=== PATIENT | male | born 1955 | race Caucasian/White ===

== ENCOUNTER 2018-01-01 12:05 | Emergency (ER) | payer BC ==
--- OUTSIDE RECORDS SUMMARY | 2018-01-01 12:08 | XMS REPORT | Clinical Summary ---
:1955 Author Organization [facility] Address [address] [place] [address] Care Team Providers Name Role Phone Nia Arellano MD Primary Care Provider Allergies Active Allergy Reactions Severity Noted Date Comments No Known Drug Allergies 06/23/2016 Current Medications Prescription Sig. Disp. Refills Start Date End Date Status multivitamin with Take 1 tablet Active minerals tablet by mouth daily. MYRBETRIQ 50 mg TAKE 1 TABLET 90 tablet 3 03/08/2017 Active tablet extended DAILY release 24 hrIndications: Urgency of urination melatonin 3 mg Take 3 mg by Active tablet mouth. enalapril-hydrochlor 08/22/2017 Active othiazide (VASERETIC) 10-25 mg per tablet labetalol Take 300 mg by Active (NORMODYNE) 300 MG mouth 2 (two) tablet times a day. apixaban (ELIQUIS) 5 Take 5 mg by Active mg tablet mouth 2 (two) times a day. amLODIPine (NORVASC) Take 5 mg by Active 5 mg tablet mouth daily. labetalol labetalol 200 Discontinued (NORMODYNE) 200 MG mg tablet 7 tablet mirabegron Take 1 tablet 30 tablet 6 10/31/2015 Discontinued (MYRBETRIQ) 50 mg (50 mg total) 7 tablet extended by mouth release 24 daily. hrIndications: Urgency of urination enalapril-hydrochlor Take 1 tablet 15 tablet 0 01/07/2016 Discontinued othiazide by mouth 7 (VASERETIC) 10-25 mg daily. per tablet enalapril 10 mg-hydrochloro thiazide 25 mg tablet aspirin (ECOTRIN) Take 325 mg by Discontinued 325 MG enteric mouth daily. 8 coated tablet melatonin 5 mg Take 5 mg by Discontinued tablet mouth. 7 amLODIPine (NORVASC) Take 1 tablet 90 tablet 3 11/03/2016 Discontinued 10 mg (10 mg total) 7 tabletIndications: by mouth Essential daily. hypertension rosuvastatin Take 1 tablet 90 tablet 1 12/03/2016 Discontinued (CRESTOR) 10 MG (10 mg total) 7 tablet by mouth daily. enalapril-hydrochlor Take 1 tablet 30 tablet 0 01/17/2017 Discontinued othiazide by mouth 7 (VASERETIC) 10-25 mg daily. per tablet enalapril 10 mg-hydrochloro thiazide 25 mg tablet amLODIPine (NORVASC) Take 2 tablets 180 tablet 3 02/22/2017 Discontinued 10 mg (20 mg total) 8 tabletIndications: by mouth Essential daily. hypertension enalapril-hydrochlor Take 1 tablet 90 tablet 3 02/22/2017 Discontinued othiazide by mouth 8 (VASERETIC) 10-25 mg daily. per tablet enalapril 10 mg-hydrochloro thiazide 25 mg tablet labetalol Take 1 tablet 180 tablet 3 02/22/2017 Discontinued (NORMODYNE) 200 MG (200 mg total) 8 tablet by mouth 2 (two) times a day. labetalol 200 mg tablet albuterol (PROAIR Inhale 2 puffs 18 g 0 05/31/2017 Discontinued HFA,PROVENTIL every 6 (six) 7 HFA,VENTOLIN HFA) 90 hours as mcg/actuation needed for inhalerIndications: wheezing. Cough, Wheezing benzonatate Take 1 capsule 20 capsule 0 05/31/2017 (TESSALON PERLES) (100 mg total) 7 100 MG by mouth 3 capsuleIndications: (three) times Cough a day as needed for cough for up to 7 days. cefdinir (OMNICEF) Take 1 capsule 20 capsule 0 05/31/2017 300 MG (300 mg total) 7 capsuleIndications: by mouth 2 Cough (two) times a day for 10 days. cetirizine (ZyrTEC) Take 1 tablet 30 tablet 11 05/31/2017 Discontinued 10 MG (10 mg total) 8 tabletIndications: by mouth Cough daily. cyclobenzaprine Take 10 mg by Discontinued (FLEXERIL) 10 mg mouth 3 7 tablet (three) times a day as needed for muscle spasms. cyclobenzaprine Take 1 tablet 30 tablet 1 06/16/2017 Discontinued (FLEXERIL) 10 mg (10 mg total) 8 tabletIndications: by mouth 3 Jaw pain, Neck pain (three) times a day as needed for muscle spasms. codeine-guaifenesin Take 5 mL by 236 mL 0 06/29/2017 Discontinued (GUAIFENESIN AC) mouth 3 8 10-100 mg/5 mL (three) times liquidIndications: a day as Bronchitis, Exposure needed for to respiratory cough for up syncytial virus to 10 days. (RSV), Cough, Wheezing albuterol (PROAIR Inhale 2 puffs 18 g 0 06/29/2017 Discontinued HFA,PROVENTIL every 6 (six) 8 HFA,VENTOLIN HFA) 90 hours as mcg/actuation needed for inhalerIndications: wheezing. Cough, Wheezing benzonatate Take 1 capsule 20 capsule 0 06/29/2017 (TESSALON PERLES) (100 mg total) 8 100 MG capsule by mouth 3 (three) times a day as needed for cough for up to 7 days. labetalol Take 1 tablet 60 tablet 2 07/11/2017 Discontinued (NORMODYNE) 300 MG (300 mg total) 8 tablet by mouth 2 (two) times a day for 30 days. amLODIPine (NORVASC) Take 1 tablet 30 tablet 2 07/12/2017 Discontinued 5 mg tablet (5 mg total) 8 by mouth daily for 30 days. apixaban (ELIQUIS) 5 Take 1 tablet 60 tablet 3 07/11/2017 Discontinued mg tablet (5 mg total) 8 by mouth 2 (two) times a day for 30 days. apixaban (ELIQUIS) 5 Take 1 tablet 180 tablet 3 07/19/2017 mg tablet (5 mg total) 8 by mouth 2 (two) times a day for 30 days. amLODIPine (NORVASC) Take 1 tablet 90 tablet 3 07/26/2017 5 mg tablet (5 mg total) 8 by mouth daily for 30 days. labetalol Take 1 tablet 180 tablet 3 07/26/2017 (NORMODYNE) 300 MG (300 mg total) 8 tablet by mouth 2 (two) times a day for 30 days. Active Problems Problem Noted Date Atrial fibrillation by electrocardiography 08/24/2017 Overview: Added automatically from request for surgery [id number] TIA (transient ischemic attack) 07/11/2017 Overview: Negative MRI, MRA, found to be in a fib Atrial fibrillation with RVR 07/09/2017 Knee pain, bilateral 12/02/2016 Pain of both hip joints 12/02/2016 Hyperlipidemia 12/02/2016 Hemorrhoid 08/05/2016 Paresthesia and pain of right extremity 08/05/2016 Sleep apnea 06/23/2016 Overview: Uses CPAP, travels with it BMI 40.0-44.9, adult 06/23/2016 History of prostate cancer 09/29/2015 Adenocarcinoma of prostate 01/30/2015 History of gastrointestinal ulcer 07/04/2011 Overview: Full eval 2011 w EGD, capsule endoscopy Mea Hypertension Colon polyp Resolved Problems Problem Noted Date Resolved Date Exposure to respiratory syncytial virus (RSV) 06/29/2017 08/18/2017 Jaw pain 06/16/2017 06/29/2017 Neck pain 06/16/2017 06/29/2017 Oral mucosal lesion 03/14/2017 05/31/2017 Overview: Bilateral lip lesion inferior buccal mucosa, poss 2nd to trauma, c/w fibroma, excision w [facility] Derangement, knee 12/17/2016 08/18/2017 Chronic pain of right knee 12/17/2016 08/18/2017 Atypical pigmented lesion 08/05/2016 03/14/2017 Bilateral shoulder pain 08/05/2016 03/14/2017 Anemia 07/04/2011 08/19/2017 Overview: [id number] full GI eval w/upper, lower, capsule - Meah Encounters Date Type Specialty Care Team Description 09/07/2017 Hospital Procedural Dee Gordon Atrial fibrillation by Encounter Cardiology RMercedes MD electrocardiography 09/07/2017 Anesthesia Event Procedural Gaj[place]ik, Cardiology Yuni 09/07/2017 Procedure Pass Procedural Cardiology 09/07/2017 Surgery Procedural Dee Gordon Cardioversion w cristal [[id number] Kam Cuadra MD (CPT)] 09/05/2017 Lab Lab Dee Gordon Atrial fibrillationVenecia MD unspecified type (Primary Dx) 08/24/2017 Orders Only Cardiology Jeancarlos, Atrial fibrillation by Alexandra electrocardiography ANNABELLE Mcleod (Primary Dx) 08/24/2017 Transcribe Orders Procedural Dee Gordon Abnormal cardiovascular Cardiology MD Venecia function study (Primary Dx) 08/24/2017 Orders Only Cardiology Marco Antonio Boone MA Atrial fibrillation, unspecified type (Primary Dx) 08/23/2017 Office Visit Cardiology Dee Gordon Paroxysmal atrial MD Venecia fibrillation (Primary Dx) 08/18/2017 Lab Lab Adan, Anemia, unspecified type; Nia Rosenthal MD Essential hypertension 08/18/2017 [facility], unspecified type (Primary Dx); Nia Rosetnhal MD Essential hypertension; Sleep apnea, unspecified type; Adenocarcinoma of prostate; Hemorrhoids, unspecified hemorrhoid type; Anemia, unspecified type 07/26/2017 Refill Cardiology Cosmo, Med Refill Carmen, MA 07/19/2017 Refill Cardiology Cosmo, Med Refill Carmen, MA 07/09/2017 Hospital Neurology Alphonse, Atrial fibrillation with - Encounter MD Linnette RVR (Primary Dx) 07/11/2017 Christophe Canela MD 07/09/2017 Procedure Pass Neurology 07/09/2017 Procedure Pass Neurology 07/09/2017 Procedure Pass Neurology 07/09/2017 Telephone [facility] Ashley Carpio MD 06/29/2017 Office Visit [facility] Adan, Essential hypertension (Primary Dx); Nia Rosenthal MD Bronchitis; Exposure to respiratory syncytial virus (RSV); Cough; Wheezing 06/29/2017 Telephone [facility] Nia Arellano MD 06/16/2017 Lab Lab Adan, Jaw pain; Nia Rosenthal MD Neck pain 06/16/2017 Office Visit [facility] Adan, Jaw pain (Primary Dx) ; Nia Rosenthal MD Neck pain; Essential hypertension 06/15/2017 Telephone [facility] Nia Arellano MD 06/13/2017 Telephone [facility] Nia Arellano MD 06/07/2017 Lab [facility], Cough Nia Rosenthal MD 05/31/2017 [facility] Nia Rosenthal MD Essential hypertension; Wheezing; Exposure to weather condition, initial encounter 05/25/2017 Telephone [facility] Jose Ramon JohnnieBI 03/25/2017 Orders Only Cardiology Dee Gordon MD 03/14/2017 [facility] (Primary Dx); Nia Rosenthal MD Pure hypercholesterolemia; Oral mucosal lesion 02/22/2017 Office Visit Cardiology Dee Gordon Pure hypercholesterolemia ( Primary Dx); MD Venecia Essential hypertension 02/18/2017 Refill Urology Marco Antonio Hernandez Urgency of urination Sivakumar Fung MD 01/18/2017 Office Visit Urology Leroy Prostate cancer (Primary Dx); Surjit echavarria Urinary frequency MD Genny 01/17/2017 Orders Only Cardiology Mariluz Armando MA 01/11/2017 Clinical Support Urology [facility] Malignant neoplasm of Surjit echavarria prostate (Primary Dx) MD Genny 01/10/2017 Office Visit Orthopedic Jaci Ravi Complex tear of medial Surgery MD Khanh meniscus of right knee as current injury, subsequent encounter (Primary Dx) 01/03/2017 Telephone Urology Surjit Workman MD after 12/31/2016 Immunizations Name Dates Previously Given Next Due FLUCELVAX QUAD PF (0.5mL syringe) 03/30/2017 Influenza Trivalent 02/09/2016, 04/03/2015 Tdap 07/04/2009 Family History Medical History Relation Name Comments Hyperlipidemia Father Lung cancer Father Cancer Maternal Grandfather colon Colon cancer Maternal Grandfather Hypertension Mother Sleep apnea Mother Testicular cancer Son Relation Name Status Comments Father Maternal Grandfather Mother Alive Son Social History Tobacco Use Types Packs/Day Years Used Date Never Smoker Smokeless Tobacco: Never Used Tobacco Cessation: Counseling Given: Yes Alcohol Use Drinks/Week oz/Week Comments Yes 3 Glasses of wine 5.4 6 Cans of beer Sex Assigned at Date Recorded Not on file Last Filed Vital Signs Vital Sign Reading Time Taken Blood Pressure 149/89 09/07/2017 11:30 AM PATIENT SUPPORT ASSOCIATE Pulse 62 09/07/2017 11:30 AM PATIENT SUPPORT ASSOCIATE Temperature 37.2 C (99 F) 09/07/2017 10:36 AM PATIENT SUPPORT ASSOCIATE Respiratory Rate 19 09/07/2017 11:30 AM PATIENT SUPPORT ASSOCIATE Oxygen Saturation 99% 09/07/2017 11:30 AM PATIENT SUPPORT ASSOCIATE Inhaled Oxygen Concentration - - Weight 138 kg (304 lb) 09/07/2017 8:19 AM PATIENT SUPPORT ASSOCIATE Height 182.9 cm (6') 09/07/2017 8:19 AM PATIENT SUPPORT ASSOCIATE Body Mass Index 41.23 09/07/2017 8:19 AM PATIENT SUPPORT ASSOCIATE Plan of Treatment Date Type Specialty Care Team Description 02/21/2018 Office Visit Cardiology Dee Gordon MD [address] [facility] [address] [place] [address] Health Maintenance Due Date Last Done Comments SHINGRIX VACCINE (#1) 2007 ZOSTER VACCINE 2017 INFLUENZA VACCINE 02/01/2018 03/30/2017, 04/20/2016, 02/09/2016, Additional history exists COLON CANCER SCREENING 02/01/2026 02/02/2016 Procedures Procedure Name Priority Date/Time Associated Diagnosis Comments ECHOCARDIOGRAM Routine 09/07/2017 Results for TRANSESOPHAGEAL W 11:37 AM PATIENT SUPPORT ASSOCIATE this procedure DOPPLER COLORFLOW are in the results section. ECG 12-LEAD STAT 09/07/2017 Results for 10:37 AM PATIENT SUPPORT ASSOCIATE this procedure are in the results section. EP CARDIOVERSION W Routine 09/07/2017 Atrial fibrillation by CRISTAL 10:34 AM PATIENT SUPPORT ASSOCIATE electrocardiography ECG PRE/POST OP STAT 09/07/2017 Results for 8:06 AM PATIENT SUPPORT ASSOCIATE this procedure are in the results section. PT AND PTT Routine 09/05/2017 Atrial fibrillation, Results for 1:41 PM PATIENT SUPPORT ASSOCIATE unspecified type this procedure are in the results section. CBC WITH PLATELET AND Routine 09/05/2017 Atrial fibrillation, Results for DIFFERENTIAL 1:41 PM PATIENT SUPPORT ASSOCIATE unspecified type this procedure are in the results section. COMPREHENSIVE Routine 09/05/2017 Atrial fibrillation, Results for METABOLIC PANEL 1:41 PM PATIENT SUPPORT ASSOCIATE unspecified type this procedure are in the results section. NM MYOCARDIAL Routine 09/01/2017 Paroxysmal atrial Results for PERFUSION STRESS ONLY 5:13 PM PATIENT SUPPORT ASSOCIATE fibrillation this procedure are in the results section. CV STRESS TEST Routine 09/01/2017 Atrial fibrillation, Results for NUCLEAR CARDIO 5:13 PM PATIENT SUPPORT ASSOCIATE unspecified type this procedure are in the results section. COMPREHENSIVE Routine 08/18/2017 Essential hypertension Results for METABOLIC PANEL 11:39 AM PATIENT SUPPORT ASSOCIATE this procedure are in the results section. CBC WITH PLATELET AND Routine 08/18/2017 Anemia, unspecified type Results for DIFFERENTIAL 11:39 AM PATIENT SUPPORT ASSOCIATE this procedure are in the results section. ECHOCARDIOGRAM 2D Routine 07/11/2017 Results for COMPLETE W MMODE 11:29 AM PATIENT SUPPORT ASSOCIATE this procedure SPECTRAL COLOR are in the DOPPLER ([id number]) results section. HC COMPLETE BLD COUNT Routine 07/11/2017 Results for W/AUTO DIFF 4:33 AM PATIENT SUPPORT ASSOCIATE this procedure are in the results section. ESTIMATED GFR Routine 07/11/2017 Results for 4:00 AM PATIENT SUPPORT ASSOCIATE this procedure are in the results section. LIPID PANEL Routine 07/11/2017 Results for 4:00 AM PATIENT SUPPORT ASSOCIATE this procedure are in the results section. THYROID STIMULATING Routine 07/11/2017 Results for HORMONE 4:00 AM PATIENT SUPPORT ASSOCIATE this procedure are in the results section. T4, FREE Routine 07/11/2017 Results for 4:00 AM PATIENT SUPPORT ASSOCIATE this procedure are in the results section. BASIC METABOLIC PANEL Routine 07/11/2017 Results for 4:00 AM PATIENT SUPPORT ASSOCIATE this procedure are in the results section. ANTI XA, LOW Routine 07/11/2017 Results for MOLECULAR WEIGHT 4:00 AM PATIENT SUPPORT ASSOCIATE this procedure are in the results section. MRA NECK WO CONTRAST Routine 07/10/2017 Results for 1:43 PM PATIENT SUPPORT ASSOCIATE this procedure are in the results section. MRA HEAD WO CONTRAST Routine 07/10/2017 Results for 1:32 PM PATIENT SUPPORT ASSOCIATE this procedure are in the results section. MRI BRAIN WO CONTRAST Routine 07/10/2017 Results for 1:23 PM PATIENT SUPPORT ASSOCIATE this procedure are in the results section. TROPONIN Routine 07/10/2017 Results for 3:00 AM PATIENT SUPPORT ASSOCIATE this procedure are in the results section. URINE DRUGS OF ABUSE Routine 07/10/2017 Results for SCREEN 3:00 AM PATIENT SUPPORT ASSOCIATE this procedure are in the results section. URINALYSIS SCREEN AND Routine 07/10/2017 Results for MICROSCOPY, WITH 3:00 AM PATIENT SUPPORT ASSOCIATE this procedure REFLEX TO CULTURE are in the results section. ESTIMATED GFR Routine 07/10/2017 Results for 3:00 AM PATIENT SUPPORT ASSOCIATE this procedure are in the results section. BASIC METABOLIC PANEL Routine 07/10/2017 Results for 3:00 AM PATIENT SUPPORT ASSOCIATE this procedure are in the results section. HC COMPLETE BLD COUNT Routine 07/10/2017 Results for W/AUTO DIFF 3:00 AM PATIENT SUPPORT ASSOCIATE this procedure are in the results section. URINE CULTURE Routine 07/10/2017 Results for 3:00 AM PATIENT SUPPORT ASSOCIATE this procedure are in the results section. SEDIMENTATION RATE Routine 07/09/2017 Results for 11:50 PM PATIENT SUPPORT ASSOCIATE this procedure are in the results section. HEMOGLOBIN A1C Routine 07/09/2017 Results for 11:50 PM PATIENT SUPPORT ASSOCIATE this procedure are in the results section. ECG 12-LEAD STAT 07/09/2017 Results for 10:28 PM PATIENT SUPPORT ASSOCIATE this procedure are in the results section. ELLA Routine 07/09/2017 Results for 10:12 PM PATIENT SUPPORT ASSOCIATE this procedure are in the results section. TROPONIN Routine 07/09/2017 Results for 10:12 PM PATIENT SUPPORT ASSOCIATE this procedure are in the results section. RHEUMATOID FACTOR Routine 07/09/2017 Results for 10:12 PM PATIENT SUPPORT ASSOCIATE this procedure are in the results section. HIV 1, 2 ANTIBODY Routine 07/09/2017 Results for 10:12 PM PATIENT SUPPORT ASSOCIATE this procedure are in the results section. SYPHILIS TREPONEMAL Routine 07/09/2017 Results for IGG 10:12 PM PATIENT SUPPORT ASSOCIATE this procedure are in the results section. C-REACTIVE PROTEIN Routine 07/09/2017 Results for 10:12 PM PATIENT SUPPORT ASSOCIATE this procedure are in the results section. THYROID STIMULATING Routine 07/09/2017 Results for HORMONE 10:12 PM PATIENT SUPPORT ASSOCIATE this procedure are in the results section. VITAMIN D 25 HYDROXY Routine 07/09/2017 Results for LEVEL 10:12 PM PATIENT SUPPORT ASSOCIATE this procedure are in the results section. HOMOCYSTINE, PLASMA Routine 07/09/2017 Results for 10:12 PM PATIENT SUPPORT ASSOCIATE this procedure are in the results section. LIPID PANEL Routine 07/09/2017 Results for 10:12 PM PATIENT SUPPORT ASSOCIATE this procedure are in the results section. FOLATE LEVEL Routine 07/09/2017 Results for 10:12 PM PATIENT SUPPORT ASSOCIATE this procedure are in the results section. VITAMIN B12 LEVEL Routine 07/09/2017 Results for 10:12 PM PATIENT SUPPORT ASSOCIATE this procedure are in the results section. ESTIMATED GFR Timed 07/09/2017 Results for 8:30 PM PATIENT SUPPORT ASSOCIATE this procedure are in the results section. T4, FREE Timed 07/09/2017 Results for 8:30 PM PATIENT SUPPORT ASSOCIATE this procedure are in the results section. THYROID STIMULATING Timed 07/09/2017 Results for HORMONE 8:30 PM PATIENT SUPPORT ASSOCIATE this procedure are in the results section. PHOSPHORUS LEVEL Timed 07/09/2017 Results for 8:30 PM PATIENT SUPPORT ASSOCIATE this procedure are in the results section. MAGNESIUM LEVEL Timed 07/09/2017 Results for 8:30 PM PATIENT SUPPORT ASSOCIATE this procedure are in the results section. BASIC METABOLIC PANEL Timed 07/09/2017 Results for 8:30 PM PATIENT SUPPORT ASSOCIATE this procedure are in the results section. PARTIAL Timed 07/09/2017 Results for THROMBOPLASTIN TIME 8:30 PM PATIENT SUPPORT ASSOCIATE this procedure (PTT) are in the results section. PROTHROMBIN TIME WITH Timed 07/09/2017 Results for INR 8:30 PM PATIENT SUPPORT ASSOCIATE this procedure are in the results section. HC COMPLETE BLD COUNT Timed 07/09/2017 Results for W/AUTO DIFF 8:30 PM PATIENT SUPPORT ASSOCIATE this procedure are in the results section. TROPONIN Timed 07/09/2017 Results for 8:30 PM PATIENT SUPPORT ASSOCIATE this procedure are in the results section. SEDIMENTATION RATE Routine 06/16/2017 Jaw pain Results for 9:59 AM PATIENT SUPPORT ASSOCIATE Neck pain this procedure are in the results section. COMPREHENSIVE Routine 06/07/2017 Cough Results for METABOLIC PANEL 1:36 PM PATIENT SUPPORT ASSOCIATE this procedure are in the results section. CBC WITH PLATELET AND Routine 06/07/2017 Cough Results for DIFFERENTIAL 1:36 PM PATIENT SUPPORT ASSOCIATE this procedure are in the results section. XR CHEST 2 VW Routine 06/07/2017 Cough Results for 1:34 PM PATIENT SUPPORT ASSOCIATE Wheezing this procedure are in the results section. OBTAIN MEDICAL Routine 03/25/2017 RECORDS 12:00 AM CDT POC URINALYSIS Routine 01/18/2017 Prostate cancer Results for DIPSTICK 12:22 PM CDT this procedure are in the results section. PSA, ULTRASENSITIVE Routine 01/11/2017 Malignant neoplasm of Results for 10:42 AM CDT prostate this procedure are in the results section. ND ARTHROCENTESIS Routine 01/10/2017 Complex tear of medial Results for ASPIR&/INJ MAJOR 6:28 PM CDT meniscus of right knee as this procedure JT/BURSA W/O US current injury, are in the subsequent encounter results section. after 12/31/2016 Results Echocardiogram transesophageal (09/07/2017 11:37 AM) Narrative Performed At [facility] Transesophageal Echo Report [id number], [place], [place] [address] Pat.Name:AIDEN MORGAN Kameron Pat.ID:[id number] .Date: 09/07/2017Refer.MD:DEE GORDON MD Exam Time: 9:49:00 AMStudy Type:CRISTAL Height:72inWeight: 303.6lb BSA: 2.55 m2 DOBAge:1955,62Y Sex: MALEBP:173/95 HR:72 bpmSonogrphr: Aamir Mooney MD Pat. Stat.:OutpatientRoom:[facility] Study Status:Final Echo Event ID:[id number] Order ID:[id number] Reason for Study:Atrial fibrillation, Cardioversion History / Clinical:Cancer, Hypertension Procedures:Transesophageal Echo with Colorflow Doppler Race: SUMMARY: LV size is normal. LV EF is normal. No thrombus or mass is visualized in the LA or LA appendage. FINDINGS: CRISTAL:The attending internet marketing strategist performed the CRISTAL procedure and waspresent for the entire duration. The patient was counseledand an informed consent was obtained. Topical and intravenousanesthesia was administered. The esophagus was intubatedwithout difficulty. The probe was passed to the gastricfundus and all standard echocardiographic views wereobtained. The patient tolerated the procedure well. LV: LV size is normal. LV EF is normal. Overall wall motion is normal.Estimated EF is 60-64%. RV: RV size is normal. RV systolic function is normal. LA: LA volume is enlarged. No thrombus or mass is visualized in theLA or LA appendage. RA: RA volume is enlarged. AO: Aortic root diameter is mildly enlarged. No significant atheroscleroticchanges seen in the aortic arch and descendingaorta. BRITTNEY: No pericardial effusion. AV: No structural AV abnormalities noted. MV: No structural MV abnormalities noted. Mild to moderate mitralregurgitation. PV: No structural PV abnormalities noted. TV: No structural TV abnormalities noted. Mild tricuspid regurgitation CRISTAL: Anesthesia: Per Anesthesia ASA Class: 3 Physician: Eric Aviles MD Information Systems Analyst: Aamir Mooney MD Pre TEEBP HR Post CRISTAL BP HR 173/95 19163/78 68 Meds:Viscous xylocaine, Cetacaine spray to oropharynx, Per Anesthesia Complications: None Condition: Stable Signed 09/07/2017 11:54 AM Eric Aviles MD Procedure Note Interface, Radiology Results In - 09/07/2017 11:54 AM [facility] Transesophageal Echo Report [id number] , [place] [address] Pat.Name: MORGANAIDEN Pat.ID: [id number] .Date: 09/07/2017 Refer.MD: DEE GORDON MD Exam Time: 9:49:00 AM Study Type:CRISTAL Height: 72in Weight: 303.6lb BSA: 2.55 m2 Age: 2 1955,62Y Sex: MALE BP: 173/95 HR: 72 bpm Sonogrphr: Aamir Mooney MD Pat. Stat.:Outpatient Room: [facility] Study Status:Final Echo Event ID:[id number] Order ID: [id number] Reason for Study:Atrial fibrillation, Cardioversion History / Clinical:Cancer, Hypertension Procedures:Transesophageal Echo with Colorflow Doppler Race: SUMMARY: LV size is normal. LV EF is normal. No thrombus or mass is visualized in the LA or LA appendage. FINDINGS: CRISTAL: The attending internet marketing strategist performed the CRISTAL procedure and was present for the entire duration. The patient was counseled and an informed consent was obtained. Topical and intravenous anesthesia was administered. The esophagus was intubated without difficulty. The probe was passed to the gastric fundus and all standard echocardiographic views were obtained. The patient tolerated the procedure well. LV: LV size is normal. LV EF is normal. Overall wall motion is normal. Estimated EF is 60-64%. RV: RV size is normal. RV systolic function is normal. LA: LA volume is enlarged. No thrombus or mass is visualized in the LA or LA appendage. RA: RA volume is enlarged. AO: Aortic root diameter is mildly enlarged. No significant atherosclerotic changes seen in the aortic arch and descending aorta. BRITTNEY: No pericardial effusion. AV: No structural AV abnormalities noted. MV: No structural MV abnormalities noted. Mild to moderate mitral regurgitation. PV: No structural PV abnormalities noted. TV: No structural TV abnormalities noted. Mild tricuspid regurgitation CRISTAL: Anesthesia: Per Anesthesia ASA Class: 3 Physician: Eric Aviles MD Information Systems Analyst: Aamir Mooney MD Pre CRISTAL BP HR Post CRISTAL BP HR 173/95 72 135/78 68 Meds: Viscous xylocaine, Cetacaine spray to oropharynx, Per Anesthesia Complications: None Condition: Stable Signed 09/07/2017 11:54 AM Eric Aviles MD Performing Organization Address City/State/Zipcode Phone Number [facility] [address] [place] [address] ECG 12 lead (09/07/2017 10:37 AM)Only the most recent of2 resultswithin the time period is included. Ventricular rate 61 [facility] Atrial rate 61 [facility] ND interval 236 [facility] QRSD interval 110 [facility] QT interval 414 [facility] QTC interval 416 [facility] P axis 1 97 [facility] QRS axis 1 -18 [facility] T wave axis -14 [facility] EKG impression Sinus rhythm with 1st degree AV block-Possible Anterior infarct (cited on or before 07-SEP-2017)-Abnormal ECG-In automated comparison with ECG of 07-SEP-2017 10:35,-Sinus rhythm has replaced Atrial flutter-Serial changes of evolving Anterior infarct [facility] MUSE present- :53 AM Performing Organization Address City/State/[facility] Phone Number [facility] MUSE [address] [place] [address] Cv electrophysiology procedure (09/07/2017 10:34 AM) Narrative Performed At Performing Organization Address [facility] Phone Number HM [facility] [address] [place] [address] ECG Pre/Post Op (09/07/2017 8:06 AM) Ventricular rate 72 [facility] Atrial rate 51 [facility] QRSD interval 104 [facility] QT interval 408 [facility] QTC interval 446 [facility] QRS axis 1 -10 [facility] T wave axis -8 [facility] MUSE EKG impression Atrial fibrillation-Abnormal ECG-In automated [facility] MUSE comparison with ECG of 09-JUL-2017 22:28,-No significant change was found- Performing Organization Address [facility] Phone Number [facility] MUSE [address] [place] [address] PT and PTT (09/05/2017 1:41 PM) INR 1.0 0.8 - 1.2 [facility] Comment: Reference interval is for non-anticoagulated patients. Suggested INR therapeutic range for Vitamin K antagonist therapy: Standard Dose (moderate intensity therapeutic range): 2.0 - 3.0 Higher intensity therapeutic range 2.5 - 3.5 Prothrombin time 10.5 9.1 - 12.0 sec [facility] aPTT 27 24 - 33 sec [facility] Comment: This test has not been validated for monitoring unfractionated heparin therapy. aPTT-based therapeutic ranges for unfractionated heparin therapy have not been established. For general guidelines on Heparin monitoring, refer to the [facility] Directory of Services. Specimen Blood Narrative Performed At Performed at: - [facility] [place], [id number] [employer] Team Member: Eduardo Singh MD, Phone:[phone] Performing Organization Address [facility] Phone Number [facility] CBC with platelet and differential (09/05/2017 1:41 PM)Only the most recent of6 resultswithin the time period is included. WBC 4.2 3.4 - 10.8 x10E3/uL [facility] RBC 4.35 4.14 - 5.80 x10E6/uL [facility] HGB 13.8 13.0 - 17.7 g/dL [facility] HCT 39.9 37.5 - 51.0 % [facility] MCV 92 79 - 97 fL [facility] MCH 31.7 26.6 - 33.0 pg [facility] MCHC 34.6 31.5 - 35.7 g/dL [facility] RDW 14.0 12.3 - 15.4 % [facility] Platelet count 228 150 - 379 x10E3/uL [facility] Neutrophils 40 Not Estab. % [facility] Lymphocytes 44 Not Estab. % [facility] Monocytes 10 Not Estab. % [facility] Eosinophils 4 Not Estab. % [facility] Basophils 1 Not Estab. % [facility] Neutrophils, absolute 1.7 1.4 - 7.0 x10E3/uL [facility] Lymphocytes, absolute 1.9 0.7 - 3.1 x10E3/uL [facility] Monocytes, absolute 0.4 0.1 - 0.9 x10E3/uL [facility] Eosinophils, absolute 0.2 0.0 - 0.4 x10E3/uL [facility] Basophils, absolute 0.0 0.0 - 0.2 x10E3/uL [facility] Immature granulocytes 1 Not Estab. % [facility] Immature grans (abs) 0.0 0.0 - 0.1 x10E3/uL [facility] Specimen Blood Narrative Performed At Performed at: - [facility] [address] [place], [id number] [employer] Team Member: Eduardo Singh MD, Phone:[phone] Performing Organization Address [facility]/State/Zipcode Phone Number [facility] Comprehensive metabolic panel (09/05/2017 1:41 PM)Only the most recent of3 resultswithin the time period is included. Glucose 87 65 - 99 mg/dL [facility] BUN, whole blood 14 8 - 27 mg/dL [facility] Creatinine 1.17 0.76 - 1.27 mg/dL [facility] EGFR Non-Afr. Swedish 67 >59 mL/min/1.73 [facility] EGFR 78 >59 mL/min/1.73 [facility] BUN/creatinine ratio 12 10 - 24 [facility] Sodium 142 134 - 144 mmol/L [facility] Potassium 3.7 3.5 - 5.2 mmol/L [facility] Chloride 101 96 - 106 mmol/L [facility] CO2 26 18 - 29 mmol/L [facility] Calcium 9.2 8.6 - 10.2 mg/dL [facility] Protein 6.9 6.0 - 8.5 g/dL [facility] Albumin, S 4.1 3.6 - 4.8 g/dL [facility] Globulin, total 2.8 1.5 - 4.5 g/dL [facility] Albumin/globulin ratio 1.5 1.2 - 2.2 [facility] Total bilirubin 0.5 0.0 - 1.2 mg/dL [facility] Alkaline phosphatase 47 39 - 117 IU/L [facility] AST 22 0 - 40 IU/L [facility] ALT 21 0 - 44 IU/L [facility] Specimen Blood Narrative Performed At Performed at:01 - [facility] [address] [place], [place] [id number] [employer] Team Member: Eduardo Singh MD, Phone:[phone] Performing Organization Address City/State/Zipcode Phone Number [facility] Cv stress test (09/01/2017 5:13 PM) Resting HR 78 [facility] Resting BP 136 [facility] Peak MET Achieved 1.0 [facility] MUSE Protocol Name Sarah [facility] MUSE Time in Exercise Phase 00:00:13 [facility] Max Systolic BP 152 [facility] Max Diastolic BP 74 [facility] Max Heart Rate 107 [facility] Max Predicted Heart Rate 160 [facility] Target HR Formula (220 - Age)*85% [facility] MUSE Test Indication Paroxysmal atrial fibrillation [facility] MUSE Arrhy During Ex [facility] ECG Interp Before EX [facility] ECG Interp During Ex [facility] Ex Summary Comment [facility] MUSE Overall HR Response to [facility] MUSE Exercise Overall BP Response To [facility] Exercise Reason for Termination Test complete [facility] MUSE Stress Test Impression Waveform interpreted in report [facility] MUSE associated with image study. No interpretation is provided as part of this Stress ECG report.-- Performing Organization Address City/State/Zipcode Phone Number [facility] MUSE [address] [place] [address] Nm myocardial perfusion (09/01/2017 5:13 PM) Target HR 136.00 bpm [facility] Narrative Performed At [facility] Nuclear Cardiology Laboratory [address] [facility], [address] [place] [address] Pli: [phone] Myocardial Perfusion Imaging Report Pat.Name:AIDEN MORGAN Kameron Pat.ID:[id number] .Date: 09/01/2017Refer.MD:DEE GORDON MD Exam Time: 10:24:00 AM Study Type:Myocardial Perfusion Imaging Height:73inWeight: 304lb BSA: 2.57 m2 DOBAge:1955,62Y Sex: MALE Nuclear Tech:KEVIN Valdez, [facility] Pat. Stat.:OutpatientNuclear Event ID:[id number] Order ID:[id number] Reason for Study:Abnormal EKG*, Atrial fibrillation* Procedures:Stress only Race: Clinical Symptoms:Regadenoson SUMMARY: BASELINE ECGNormal Sinus Rhythm STRESS TEST RESULTS Maximal Predicted HR160 beats/minute 85% Maximal Predicted HR 136 beats/minute Stress Test Duration1 minutes 00 seconds Resting Heart Rate78 beats/minute Maximal Heart Brrg343 beats/minute Resting Blood Jlnrdbkw543/86 mmHg Maximal Blood Rnjikopl832/74 mmHg % Maximal Heart Rate Achieved 66% Symptoms During TestHeadache, Shortness of breath Reason for Stopping TestAs per regadenoson protocol Maximal ST-segment shiftNone Stress-Induced Arrhythmias None Ischemic electrocardiographic changes (ST-segment depression) did not occur at peak regadenoson stress._. STRESS TEST INTERPRETATION Normal maximal regadenoson stress test. _. SCINTIGRAPHIC RESULTS Perfusion Defect Size (% LV) 0 % Total 0 % Ischemia 0 % Scar Left Ventricular Perfusion Results There is normal tracer distribution throughout the myocardium during stress. Gated SPECT Results The post-stress left ventricular ejection fraction is 56 % with normal regional wall motion and left ventricular thickening.Left ventricular end-diastolic volume is 172 ml; end-systolic volume is75 ml. The left ventricle is of normal size at stress.The right ventricle is of normal size with normal wall motion. Conclusion Normal regadenoson Tc-99m tetrofosmin myocardial perfusion study. The left ventricular ejection fraction is normal. Comments Patients with a normal stress myocardial perfusion study have a low (< 1%) annual risk of cardiac or nonfatal myocardial infarction. Study Quality/Artifacts The study quality is good. The mild reduction in mid and basal inferior wall counts during stress is probably due to diaphragmatic and other soft tissue attenuation artifacts rather than coronary artery disease. Comparison to Previous Study None available Signed 09/01/2017 03:24 PM Eric Aviles MD Procedure Note Interface, Radiology Results In - 09/01/2017 3:24 PM [facility] Nuclear Cardiology Laboratory [address] [facility] [address], [address] [place] [address] Myocardial Perfusion Imaging Report Pat.Name: AIDEN MORGAN Kameron Pat.ID: [id number] .Date: 09/01/2017 Refer.MD: DEE GORDON MD Exam Time: 10:24:00 AM Study Type:Myocardial Perfusion Imaging Height: 73in Weight: 304lb BSA: 2.57 m2 Age: 2 1955,62Y Sex: MALE Nuclear Tech:KEVIN Valdez ARRT(CT) Pat. Stat.:Outpatient Nuclear Event ID:[id number] Order ID: [id number] Reason for Study:Abnormal EKG*, Atrial fibrillation* Procedures:Stress only Race: Clinical Symptoms:Regadenoson SUMMARY: BASELINE ECG Normal Sinus Rhythm STRESS TEST RESULTS Maximal Predicted HR 160 beats/minute 85% Maximal Predicted HR 136 beats/minute Stress Test Duration 1 minutes 00 seconds Resting Heart Rate 78 beats/minute Maximal Heart Rate 107 beats/minute Resting Blood Pressure 136/86 mmHg Maximal Blood Pressure 152/74 mmHg % Maximal Heart Rate Achieved 66% Symptoms During Test Headache, Shortness of breath Reason for Stopping Test As per regadenoson protocol Maximal ST-segment shift None Stress-Induced Arrhythmias None Ischemic electrocardiographic changes (ST-segment depression) did not occur at peak regadenoson stress. _. STRESS TEST INTERPRETATION Normal maximal regadenoson stress test. _. SCINTIGRAPHIC RESULTS Perfusion Defect Size (% LV) 0 % Total 0 % Ischemia 0 % Scar Left Ventricular Perfusion Results There is normal tracer distribution throughout the myocardium during stress. Gated SPECT Results The post-stress left ventricular ejection fraction is 56 % with normal regional wall motion and left ventricular thickening. Left ventricular end-diastolic volume is 172 ml; end-systolic volume is 75 ml. The left ventricle is of normal size at stress. The right ventricle is of normal size with normal wall motion. Conclusion Normal regadenoson Tc-99m tetrofosmin myocardial perfusion study. The left ventricular ejection fraction is normal. Comments Patients with a normal stress myocardial perfusion study have a low (< 1%) annual risk of cardiac or nonfatal myocardial infarction. Study Quality/Artifacts The study quality is good. The mild reduction in mid and basal inferior wall counts during stress is probably due to diaphragmatic and other soft tissue attenuation artifacts rather than coronary artery disease. Comparison to Previous Study None available Signed 09/01/2017 03:24 PM Eric Aviles MD Performing Organization Address City/State/Zipcode Phone Number [facility] [address] [place] [address] Echocardiogram complete w contrast and 3D if needed (07/11/2017 11:29 AM) Narrative Performed At [facility] Echocardiography Report [address] [address], [place] [address] Pat.Name:AIDEN MORGAN Pat.ID:[id number] .Date: 07/11/2017Refer.MD:LINNETTE PAL MD Exam Time: 10:36:00 AM Study Type:Routine Echo Height:73inWeight: 298lb BSA: 2.55 m2 DOBAge:1955,61Y Sex: MALEBP:113/75 HR:79 bpm Sonogrphr: Zaira Rivas RDCS; Farnaz Hernandez. Stat.:Inpatient Room:[address] Study Status:Final Echo Event ID:[id number] Order ID:[id number] Reason for Study:A fib History / Clinical:Cancer, Hypertension Procedures:2D Echo, Colorflow Doppler Race:C SUMMARY: There is mild concentric LV hypertrophy. Normal LVEF FINDINGS: LV: LV size is normal. There is mild concentric LV hypertrophy. LVEF is normal. Overall wall motion is normal. Estimated EFis 60-64%. RV: RV size is normal. RV systolic function is normal. LA: LA volume is moderately enlarged. RA: RA volume is moderately enlarged. AO: Aortic root diameter is normal. BRITTNEY: No pericardial effusion. AV: Focal calcification of AV leaflets. MV: No structural MV abnormalities noted. Mild mitral regurgitation. PV: No structural PV abnormalities noted. A trace of pulmonic regurgitation. TV: No structural TV abnormalities noted. Sánchez: LV relaxation is impaired. Other:Estimated PA systolic pressure is 21 mmHg, assuming a mean RAPof 5 mmHg. MEASUREMENTS: 2D Parasternal [place] LVOT 2.4 cmAo An2.5 cm LVIDd5.4 cmIndex2.1 cm/m Ao Rtd 3.7 cm Index1.4 cm/m LVIDs3.2 cm LV Fmdi404.8 g(122-174) IVSd 1.3 cmLVM Fmiox349.1 g/m2 LVPWd1.3 cmRWT0.4 LA Ds5.1 cm LA Sng Plane LA Area 28.7 cm2(8.8-23.4) LA Vol 101.1 ml Index39.6 ml/m LA LngAx 6.8 cm RA Sng Plane RA Area 31.3 cm2(8.3-19.5) RA Vol 114.8 ml Index45 ml/m RA LngAx 7.1 cm DOPPLER LVOT For Flow LVOT Area4.5 cm2 LVOT SV 77.6 ml LVOTpkVel 99.5 cm/sHR85.2 bpm LVOTpkPG 4 mmHgLVOT CO6.6 l/min LVOTmnPG 2.2 mmHgLVOT CI2.6 l/m/m2 LVOT TVI17.2 cm Signed 07/11/2017 01:40 PM Eric Aviles MD Procedure Note Interface, Radiology Results In - 07/11/2017 1:40 PM [facility] Echocardiography Report [address] [place] [address] Pat.Name: AIDEN MORGAN Pat.ID: [id number] .Date: 07/11/2017 Refer.MD: LINNETTE PAL MD Exam Time: 10:36:00 AM Study Type:Routine Echo Height: 73in Weight: 298lb BSA: 2.55 m2 Age: 2 1955,61Y Sex: MALE BP: 113/75 HR: 79 bpm Sonogrphr: Zaira Rivas RDCS; Farnaz Hernandez. Stat.:Inpatient Room: [address] Study Status:Final Echo Event ID:[id number] Order ID: [id number] Reason for Study:A fib History / Clinical:Cancer, Hypertension Procedures:2D Echo, Colorflow Doppler Race: C SUMMARY: There is mild concentric LV hypertrophy. Normal LVEF FINDINGS: LV: LV size is normal. There is mild concentric LV hypertrophy. LV EF is normal. Overall wall motion is normal. Estimated EF is 60-64%. RV: RV size is normal. RV systolic function is normal. LA: LA volume is moderately enlarged. RA: RA volume is moderately enlarged. AO: Aortic root diameter is normal. BRITTNEY: No pericardial effusion. AV: Focal calcification of AV leaflets. MV: No structural MV abnormalities noted. Mild mitral regurgitation. PV: No structural PV abnormalities noted. A trace of pulmonic regurgitation. TV: No structural TV abnormalities noted. Sánchez: LV relaxation is impaired. Other: Estimated PA systolic pressure is 21 mmHg, assuming a mean RAP of 5 mmHg. MEASUREMENTS: 2D Parasternal [place] LVOT 2.4 cm Ao An 2.5 cm LVIDd 5.4 cm Index 2.1 cm/m Ao Rtd 3.7 cm Index 1.4 cm/m LVIDs 3.2 cm LV Mass 331.8 g (122-174) IVSd 1.3 cm LVM Index 130.1 g/m2 LVPWd 1.3 cm RWT 0.4 LA Ds 5.1 cm LA Sng Plane LA Area 28.7 cm2 (8.8-23.4) LA Vol 101.1 ml Index 39.6 ml/m LA LngAx 6.8 cm RA Sng Plane RA Area 31.3 cm2 (8.3-19.5) RA Vol 114.8 ml Index 45 ml/m RA LngAx 7.1 cm DOPPLER LVOT For Flow LVOT Area 4.5 cm2 LVOT SV 77.6 ml LVOTpkVel 99.5 cm/s HR 85.2 bpm LVOTpkPG 4 mmHg LVOT CO 6.6 l/min LVOTmnPG 2.2 mmHg LVOT CI 2.6 l/m/m2 LVOT TVI 17.2 cm Signed 07/11/2017 01:40 PM Eric Aviles MD Performing Organization Address [facility] Phone Number [facility] [address] [place] [address] Estimated GFR (07/11/2017 4:00 AM)Only the most recent of3 resultswithin the time period is included. GFR Non Af Amer 68 mL/min/1.73 m2 [facility] DEPARTMENT OF PATHOLOGY AND GENOMIC MEDICINE GFR Af Amer 83 mL/min/1.73 m2 [facility] DEPARTMENT OF Comment: PATHOLOGY AND GENOMIC Chronic kidney disease: <60 mL/min/1.73m2 MEDICINE Kidney failure: <15 mL/min/1.73m2 The estimated GFR is calculated from the IDMS-traceable Modification of Diet in Renal Disease Equation. The accuracy of the calculation is poor when the creatinine is normal. Calculated values >90 mL/min/1.73m2 are not reported. This equation has not been validated in children (<18 years), women, the elderly (>70 years), or ethnic groups other than Caucasians and Americans. Specimen Plasma specimen Performing Organization Address [facility] Phone Number [facility] DEPARTMENT OF PATHOLOGY AND [address] [place] [address] [facility] MEDICINE Anti Xa, low molecular weight (07/11/2017 4:00 AM) Heparin name Lovenox [facility] DEPARTMENT OF PATHOLOGY AND GENOMIC MEDICINE Anti Xa, low molecular 0.64 0.60 - 1.00 U/mL [facility] DEPARTMENT OF weight Comment: PATHOLOGY AND GENOMIC Specimen must be drawn at least 4 hours post dose following a MEDICINE minimum of 3 doses. Therapeutic Range:0.60 - 1.00 U/mL Specimen Blood Performing Organization Address City/State/Zipcode Phone Number [facility] DEPARTMENT OF PATHOLOGY AND [address] [place] [address] MEDICINE Thyroid stimulating hormone (07/11/2017 4:00 AM)Only the most recent of3 resultswithin the time period is included. TSH 2.90 0.27 - 4.20 uIU/mL [facility] DEPARTMENT OF PATHOLOGY AND GENOMIC MEDICINE Specimen Plasma specimen Performing Organization Address City/[facility] Phone Number [facility] DEPARTMENT OF PATHOLOGY AND [address] [place] [address] MEDICINE T4, free (07/11/2017 4:00 AM)Only the most recent of2 resultswithin the time period is included. T4, free 1.1 0.9 - 1.7 ng/dL [facility] DEPARTMENT OF PATHOLOGY AND GENOMIC MEDICINE Specimen Plasma specimen Performing Organization Address City/[facility] Phone Number [facility] DEPARTMENT OF PATHOLOGY AND [address] [place] [address] GENOMIC MEDICINE Lipid panel (07/11/2017 4:00 AM)Only the most recent of2 resultswithin the time period is included. Cholesterol 182 <200 mg/dL [facility] DEPARTMENT OF PATHOLOGY AND GENOMIC MEDICINE Triglycerides 144 <150 mg/dL [facility] DEPARTMENT OF PATHOLOGY AND GENOMIC MEDICINE HDL cholesterol 35 (L) >40 mg/dL [facility] DEPARTMENT OF PATHOLOGY AND GENOMIC MEDICINE LDL cholesterol 133 (H)Comment: Result <100 mg/dL [facility] DEPARTMENT OF obtained by direct LDL PATHOLOGY AND GENOMIC measurement MEDICINE Lipid panel interpretation SeeBelow [facility] DEPARTMENT OF Comment: PATHOLOGY AND GENOMIC Total Cholesterol (mg/dL) MEDICINE <200 Desirable 820-181Yevgxbrygf-zdzs >=240High Triglycerides (mg/dL) <150 Normal 100-562Iwzsbdomfn-xuyq 200-499High >=500Very high HDL Cholesterol (mg/dL) <40Low (male) <40Low (female) LDL Cholesterol (mg/dL) <100 Optimal 100-129Near or above optimal 773-406Cvtijimmjl-zdth 160-189High >=190Very high Risk Catergories that modify LDL goals. Risk CatergoriesLDL goal (mg/dL) CHD and CHD risk equivalent<100 (10-year risk >20%) Multiple (2+) risk factors <130 (10-year risk=<20%) 0-1 risk factors <160 (<10-year risk) Defining levels of lipids in metabolic syndrome Triglycerides>=150 mg/dL HDL Cholesterol Men<40 mg/dL Women<40 mg/dL Non-HDL cholesterol is a second target for therapy in persons with high triglycerides (>=200 mg/dL) Specimen Plasma specimen Performing Organization Address City/[facility] Phone Number [facility] DEPARTMENT OF PATHOLOGY AND [address] [place] [address] Basic metabolic panel (07/11/2017 4:00 AM)Only the most recent of3 resultswithin the time period is included. Sodium 139 135 - 148 mEq/L [facility] DEPARTMENT OF PATHOLOGY AND GENOMIC MEDICINE Potassium 3.5 3.5 - 5.0 mEq/L [facility] DEPARTMENT OF PATHOLOGY AND GENOMIC MEDICINE Chloride 101 98 - 112 mEq/L [facility] DEPARTMENT OF PATHOLOGY AND GENOMIC MEDICINE CO2 23 (L) 24 - 31 mEq/L [facility] DEPARTMENT OF PATHOLOGY AND GENOMIC MEDICINE Anion gap 15 7 - 15 mEq/L [facility] DEPARTMENT OF PATHOLOGY Comment: [facility] Starting from October , anion gap calculation no longer incorporates potassium. Please note the change. BUN 11 6 - 20 mg/dL [facility] DEPARTMENT OF PATHOLOGY AND GENOMIC MEDICINE Creatinine 1.1 0.7 - 1.2 mg/dL [facility] DEPARTMENT OF PATHOLOGY AND GENOMIC MEDICINE Glucose 86 65 - 99 mg/dL [facility] DEPARTMENT OF PATHOLOGY AND GENOMIC MEDICINE Calcium 8.7 8.3 - 10.2 mg/dL [facility] DEPARTMENT OF PATHOLOGY AND GENOMIC MEDICINE Specimen Plasma specimen Performing Organization Address [facility] Phone Number [facility] DEPARTMENT OF PATHOLOGY AND [address] [phone] [facility] MRA Neck Wo Contrast (07/10/2017 1:43 PM) Narrative Performed At EXAMINATION:MRA NECK WO CONTRAST RADIANT CLINICAL HISTORY:STROKE COMPARISON:None. TECHNIQUE: Neck MRA using 2D and 3D osds-qb-mguzrs technique with multi-planar MIP and 3D reconstruction. FINDINGS: There is normal flow-related signal with no occlusion along bilateral common, internal, and external carotid arteries. There is no significant stenosis according to the NASCET criteria (0%). There is normal flow-related signal with no significant stenosis or occlusion along bilateral vertebral arteries. The right vertebral artery is dominant. IMPRESSION: Unremarkable neck MRA with no significant carotid or vertebral artery stenosis. [facility]-[id number] Procedure Note Hm Interface, Radiology Results Incoming - 07/10/2017 2:10 PM PATIENT SUPPORT ASSOCIATE EXAMINATION: MRA NECK WO CONTRAST CLINICAL HISTORY: STROKE COMPARISON: None. TECHNIQUE: Neck MRA using 2D and 3D oepo-yd-qvegmu technique with multi-planar MIP and 3D reconstruction. FINDINGS: There is normal flow-related signal with no occlusion along bilateral common, internal, and external carotid arteries. There is no significant stenosis according to the NASCET criteria (0%). There is normal flow-related signal with no significant stenosis or occlusion along bilateral vertebral arteries. The right vertebral artery is dominant. IMPRESSION: Unremarkable neck MRA with no significant carotid or vertebral artery stenosis. [facility]-[id number] Performing Organization Address [facility] Phone Number [facility] [address] [place] [address] MRA Head Wo Contrast (07/10/2017 1:32 PM) Narrative Performed At EXAMINATION: MRA HEAD WO CONTRAST [facility] CLINICAL HISTORY: STROKE COMPARISON:None TECHNIQUE: [id number] MRA images of the jackson of Powers vessels were obtained with multiplanar and 3-D reconstructive algorithms. FINDINGS: The internal carotid arteries and bifurcations into the middle cerebral and anterior cerebral arteries are patent without significant stenosis. The vertebral arteries and basilar artery as well as the posterior cerebral arteries are patent with no significant stenosis. No aneurysm. IMPRESSION: No focal stenosis or aneurysm of the intracranial circulation. [facility]-[id number] Procedure Note [facility], Radiology Results Incoming - 07/10/2017 1:49 PM PATIENT SUPPORT ASSOCIATE EXAMINATION: MRA HEAD WO CONTRAST CLINICAL HISTORY: STROKE COMPARISON: None TECHNIQUE: [id number] MRA images of the jackson of Powers vessels were obtained with multiplanar and 3-D reconstructive algorithms. FINDINGS: The internal carotid arteries and bifurcations into the middle cerebral and anterior cerebral arteries are patent without significant stenosis. The vertebral arteries and basilar artery as well as the posterior cerebral arteries are patent with no significant stenosis. No aneurysm. IMPRESSION: No focal stenosis or aneurysm of the intracranial circulation. [facility]-[id number] Performing Organization Address [facility] Phone Number [facility] [address] [place] [address] MRI Brain Wo Contrast (07/10/2017 1:23 PM) Narrative Performed At EXAMINATION: MRI BRAIN WO CONTRAST [facility] CLINICAL HISTORY: NEURO DEFICITACUTESINGLEPROGRESSING, STROKE COMPARISON:None TECHNIQUE: Multiplanar and multisequence MRI imaging of the brain was obtained without contrast. FINDINGS: No evidence of acute intracranial hemorhage, mass, mass effect, acute infarct or midline shift.Ventricles and sulci are normal in appearance for patient's age. No abnormal susceptibi lity. Basal cisterns are clear. Major intracranial flow voids are maintained. Orbits are normal in appearance. Mild mucosal thickening right maxillary sinus. Mild mucosal thickening ethmoidal air cells. Mastoid air cells are clear. IMPRESSION: 1. No acute intracranial abnormality. [facility]-[id number] Procedure Note Interface, Radiology Results Incoming - 07/10/2017 1:42 PM PATIENT SUPPORT ASSOCIATE EXAMINATION: MRI BRAIN WO CONTRAST CLINICAL HISTORY: NEURO DEFICIT ACUTE SINGLE PROGRESSING, STROKE COMPARISON: None TECHNIQUE: Multiplanar and multisequence MRI imaging of the brain was obtained without contrast. FINDINGS: No evidence of acute intracranial hemorhage, mass, mass effect, acute infarct or midline shift. Ventricles and sulci are normal in appearance for patient 's age. No abnormal susceptibility. Basal cisterns are clear. Major intracranial flow voids are maintained. Orbits are normal in appearance. Mild mucosal thickening right maxillary sinus. Mild mucosal thickening ethmoidal air cells. Mastoid air cells are clear. IMPRESSION: 1. No acute intracranial abnormality. [facility]-[id number] Performing Organization Address City/State/Zipcode Phone Number [facility] [address] [place] [address] Urinalysis screen and microscopy, with reflex to culture (07/10/2017 3:00 AM) Specimen site Clean catch [facility] DEPARTMENT OF PATHOLOGY AND GENOMIC MEDICINE Color, UA Straw [facility] DEPARTMENT OF PATHOLOGY AND GENOMIC MEDICINE Appearance, UA Clear [facility] DEPARTMENT OF PATHOLOGY AND GENOMIC MEDICINE Specific gravity, UA 1.018 1.001 - 1.035 [facility] DEPARTMENT OF PATHOLOGY AND GENOMIC MEDICINE pH, UA 5.0 5.0 - 8.5 [facility] DEPARTMENT OF PATHOLOGY AND GENOMIC MEDICINE Protein, UA Negative Negative [facility] DEPARTMENT OF PATHOLOGY AND GENOMIC MEDICINE Glucose, UA Negative Negative [facility] DEPARTMENT OF PATHOLOGY AND GENOMIC MEDICINE Ketones, UA Negative Negative [facility] DEPARTMENT OF PATHOLOGY AND GENOMIC MEDICINE Bilirubin, UA Negative Negative [facility] DEPARTMENT OF PATHOLOGY AND GENOMIC MEDICINE Blood, UA Negative Negative [facility] DEPARTMENT OF PATHOLOGY AND GENOMIC MEDICINE Nitrite, UA Negative Negative [facility] DEPARTMENT OF PATHOLOGY AND GENOMIC MEDICINE Urobilinogen, UA <2.0 <2.0 [facility] DEPARTMENT OF PATHOLOGY AND GENOMIC MEDICINE Leukocyte esterase, UA Negative Negative [facility] DEPARTMENT OF PATHOLOGY AND GENOMIC MEDICINE WBC, UA <1 0 - 1 /HPF [facility] DEPARTMENT OF PATHOLOGY AND GENOMIC MEDICINE RBC, UA <1 0 - 1 /HPF [facility] DEPARTMENT OF PATHOLOGY AND GENOMIC MEDICINE Bacteria, UA None seen None seen [facility] DEPARTMENT OF PATHOLOGY AND GENOMIC MEDICINE Yeast, UA None seen [facility] DEPARTMENT OF PATHOLOGY AND GENOMIC MEDICINE Yeast with pseudohyphae, UA None seen [facility] DEPARTMENT OF PATHOLOGY AND GENOMIC MEDICINE Specimen Urine Performing Organization Address City/[facility] Phone Number [facility] DEPARTMENT OF PATHOLOGY AND [address] [place] [phone] [facility] Troponin (07/10/2017 3:00 AM)Only the most recent of3 resultswithin the time period is included. Troponin <0.30 0.00 - 0.30 ng/mL [facility] DEPARTMENT OF PATHOLOGY Comment: AND GENOMIC MEDICINE 0.30 - 1.49 ng/mlMay indicate increased risk of acute coronary syndrome. >=1.5 ng/mlConsistent with acute myocardial infarction. The diagnostic value of a single normal or non-diagnostic result is questionable.Serial samples at 2-6 hour intervals are required to rule out acute myocardial injury. Specimen Plasma specimen Performing Organization Address City/[facility] Phone Number [facility] DEPARTMENT OF PATHOLOGY AND [address] [place] [phone] [facility] Urine drugs of abuse screen (07/10/2017 3:00 AM) Amphetamine screen, urine Negative [facility] DEPARTMENT OF PATHOLOGY AND GENOMIC MEDICINE Barbiturate screen, urine Negative [facility] DEPARTMENT OF PATHOLOGY AND GENOMIC MEDICINE Benzodiazepine screen, Negative [facility] DEPARTMENT OF urine PATHOLOGY AND GENOMIC MEDICINE Cannabinoid screen, urine Negative [facility] DEPARTMENT OF PATHOLOGY AND GENOMIC MEDICINE Cocaine screen, urine Negative [facility] DEPARTMENT OF PATHOLOGY AND GENOMIC MEDICINE Methadone metabolite Negative [facility] DEPARTMENT OF (EDDP), urine PATHOLOGY AND GENOMIC MEDICINE Opiates screen, urine Negative [facility] DEPARTMENT OF PATHOLOGY AND GENOMIC MEDICINE Oxycodone screen, urine Negative [facility] DEPARTMENT OF PATHOLOGY AND GENOMIC MEDICINE Phencyclidine screen, urine Negative [facility] DEPARTMENT OF PATHOLOGY AND GENOMIC MEDICINE Tricyclic screen, urine Negative [facility] DEPARTMENT OF Comment: PATHOLOGY AND GENOMIC Drug screen minimum concentration of detectability MEDICINE Utafiwutlmvb4819 ng/mL Barbiturates 200 ng/mL Bdtkrovuwgezguu499 ng/mL Lyidhnq791 ng/mL Kpsuiekup472 ng/mL Kwixlkw010 ng/mL Eeexfytxq032 ng/mL Phencyclidine 25 ng/mL Eahgxzjyuxsk88 ng/mL Fqqmviibcw7290 ng/mL Negative test results indicates presumptive evidence of lack of clinically significant drug concentration in this urine specimen. Positive test results are presumptive evidence of clinically significant drug concentration in this urine specimen. Testing performed for medical purposes only. Specimen Urine Performing Organization Address City/[facility]ercode Phone Number [facility] DEPARTMENT OF PATHOLOGY AND [address] [place] [address] Urine culture (07/10/2017 3:00 AM) Urine culture SEE COMMENTComment: Bacteriuria [facility] DEPARTMENT OF PATHOLOGY screen negative. AND GENOMIC MEDICINE Performing Organization Address [facility] Phone Number [facility] DEPARTMENT OF PATHOLOGY AND [address] [place] [address] Sedimentation rate (07/09/2017 11:50 PM)Only the most recent of2 resultswithin the time period is included. Sedimentation rate 24 (H) 0 - 10 mm/hr [facility] DEPARTMENT OF PATHOLOGY AND [facility] Specimen Blood Performing Organization Address [facility] Phone Number [facility] DEPARTMENT OF PATHOLOGY AND [address] [place] [address] Hemoglobin A1c (07/09/2017 11:50 PM) Hemoglobin A1C 5.4 4.0 - 5.6 % [facility] DEPARTMENT OF PATHOLOGY Comment: [facility] HbA1c cutoffs for diagnosing diabetes: 4.0% - 5.6%=normal 5.7% - 6.4%=increased risk for diabetes (prediabetes) >=6.5%=diabetes Goals for glycemic control (ADA 2016) < 7.0%Target for non adults with diabetes. More or less stringent targets may be appropriate for individual patients. <7.5% Target for Children and adolescents with type 1 diabetes. Specimen Blood Performing Organization Address [facility]ode Phone Number [facility] DEPARTMENT OF PATHOLOGY AND [address] [place] [address] Syphilis treponemal IgG (07/09/2017 10:12 PM) Syphilis treponemal IgG Non-reactiveComment: Non-reactive [facility] DEPARTMENT OF Non-reactive: No PATHOLOGY AND GENOMIC serological evidence of MEDICINE Syphilis infection Specimen Serum Performing Organization Address City/[facility]/Zipcode Phone Number [facility] DEPARTMENT OF PATHOLOGY AND [address] [place] [address] Homocystine, plasma (07/09/2017 10:12 PM) Homocysteine 10.7 0.0 - 15.0 umol/L [facility] DEPARTMENT OF Comment: PATHOLOGY AND GENOMIC The risk for coronary vascular disease increases progressively MEDICINE with homocysteine concentration.A 3.4 times greater risk is associated with a homocysteine concentration of greater than 15.8 umol/L as compared to a concentration below 14.1 umol/L. Specimen Plasma specimen Performing Organization Address City/[facility]ode Phone Number [facility] DEPARTMENT OF PATHOLOGY AND [address] [place] [phone] [facility] Vitamin D 25 hydroxy level (07/09/2017 10:12 PM) Vitamin D, 25-hydroxy 29.2 (L) 30.0 - 150.0 [facility] DEPARTMENT OF Comment: ng/mL PATHOLOGY AND [facility] This assay reports the sum of 25-hydroxy vitamin D3 and 25-hydroxy vitamin MEDICINE D2. Reference range: 0-17 years: Deficiency: less than 20ng/mL Optimum level: greater than or equal to 20 ng/mL. 18 years and older: Deficiency: less than 20ng/mL Insufficiency: 20-29 ng/mL Optimum Level: 30-80 ng/mL The assay reportable range is 3.4155.9 ng/mL. Levels higher than 150 ng/mL may be associated with toxicity. If toxicity is clinically suspected and the reported result is >155.9 ng/mL,contact lab for alternative methods to obtain a definitivelevel. If separate quantitation of 25-hydroxy vitamin D3 and 25-hydroxy vitamin D2 is needed, please contact lab for alternative methods. Specimen Blood Performing Organization Address City/State/Zipcode Phone Number [facility] DEPARTMENT OF PATHOLOGY AND [address] [place] [phone] [facility] HIV 1, 2 antibody (07/09/2017 10:12 PM) HIV 1, 2 antibody Non-reactive Non-reactive [facility] DEPARTMENT OF Comment: PATHOLOGY AND GENOMIC Starting from September 30 2015, 4th generation HIV screening MEDICINE and confirmation assays are in use at [facility], consistent with the CDC-recommended algorithm. The screening test detects antibodies to HIV-1, HIV-2 and the p24 antigen. Positive screening results will be automatically reflexed to a HIV-1/HIV-2 differentiation assay. Indeterminant HIV-1 results will be further automatically reflexed to a nucleic acid test for detection of acute infection. Western blot will no longer be performed as a confirmation test. For a quick reference guide on the testing algorithm, please refer to: http://stacks.cdc.gov/view/cdc/72718. Specimen Blood Performing Organization Address City/[facility] Phone Number [facility] DEPARTMENT OF PATHOLOGY AND [address] [place] [address] Rheumatoid factor (07/09/2017 10:12 PM) Rheumatoid factor <10 0 - 13 IU/mL [facility] DEPARTMENT OF PATHOLOGY AND [facility] Specimen Plasma specimen Performing Organization Address [facility] Phone Number [facility] DEPARTMENT OF PATHOLOGY AND [address] [place] [address] C-reactive protein (07/09/2017 10:12 PM) CRP <0.30 0.00 - 0.50 mg/dL [facility] DEPARTMENT OF PATHOLOGY AND [facility] Specimen Plasma specimen Performing Organization Address [facility] Phone Number [facility] DEPARTMENT OF PATHOLOGY AND [address] [place] [address] ELLA (07/09/2017 10:12 PM) ELLA screen <1:80 <1:80 [facility] DEPARTMENT OF PATHOLOGY AND [facility] Specimen Blood Performing Organization Address [facility] Phone Number [facility] DEPARTMENT OF PATHOLOGY AND [address] [place] [address] Folate level (07/09/2017 10:12 PM) Folate 16.8 4.8 - 24.2 ng/mL [facility] DEPARTMENT OF PATHOLOGY AND [facility] MEDICINE Specimen Serum Performing Organization Address [facility] Phone Number [facility] DEPARTMENT OF PATHOLOGY AND [address] [place] [address] Vitamin B12 level (07/09/2017 10:12 PM) Vitamin B12 665 211 - 946 pg/mL [facility] DEPARTMENT OF PATHOLOGY Comment: AND [facility] Significant overlap exists between normal and deficiency states. However, most patients with deficiencies will have Serum B12 <200 pg/mL. Specimen Serum Performing Organization Address [facility]ode Phone Number [facility] DEPARTMENT OF PATHOLOGY AND [address] [place] [address] Partial thromboplastin time, activated (07/09/2017 8:30 PM) PTT 30.6 23.0 - 36.0 sec [facility] DEPARTMENT OF PATHOLOGY Comment: AND [facility] PTT therapeutic range for unfractionated heparin is 61.0-112.0 seconds which corresponds to Anti-Xa 0.3-0.7 U/ml. Specimen Blood Performing Organization Address City/[facility]ode Phone Number [facility] DEPARTMENT OF PATHOLOGY AND [address] [place] [address] Prothrombin time with INR (07/09/2017 8:30 PM) Prothrombin time 14.1 12.0 - 15.0 sec [facility] DEPARTMENT OF PATHOLOGY AND GENOMIC MEDICINE INR 1.1 [facility] DEPARTMENT OF Comment: PATHOLOGY AND GENOMIC The International Normalized Ratio (INR) is a therapeutic MEDICINE monitoring tool for patients who are stable on oral anticoagulant therapy. An INR of 2.0-3.0 is suggested for deep vein thrombosis/pulmonary embolism. Specimen Blood Performing Organization Address [facility]ode Phone Number [facility] DEPARTMENT OF PATHOLOGY AND [address] [place] [address] Phosphorus level (07/09/2017 8:30 PM) Phosphorus 2.7 2.4 - 4.5 mg/dL [facility] DEPARTMENT OF PATHOLOGY AND GENOMIC MEDICINE Specimen Plasma specimen Performing Organization Address [facility] Phone Number [facility] DEPARTMENT OF PATHOLOGY AND [address] [place] [address] Magnesium level (07/09/2017 8:30 PM) Magnesium 2.1 1.6 - 2.6 mg/dL [facility] DEPARTMENT OF PATHOLOGY AND GENOMIC MEDICINE Specimen Plasma specimen Performing Organization Address [facility] Phone Number [facility] DEPARTMENT OF PATHOLOGY AND [address] [place] [address] XR Chest 2 Vw (06/07/2017 1:34 PM) Narrative Performed At EXAMINATION:XR CHEST 2 VW HM RADIANT CLINICAL HISTORY:R05 Cough, R06.2 Wheezing, Cough, coughwheezingpost Anthony and garage exposure at home COMPARISON:None. IMPRESSION: The lungs are clear. The heart is not enlarged. The bony structures are within normal limits. [facility]-[id number] Procedure Note Hm Interface, Radiology Results Incoming - 06/07/2017 1:42 PM PATIENT SUPPORT ASSOCIATE EXAMINATION: XR CHEST 2 VW CLINICAL HISTORY: R05 Cough, R06.2 Wheezing, Cough, cough wheezing post Anthony and garage exposure at home COMPARISON: None. IMPRESSION: The lungs are clear. The heart is not enlarged. The bony structures are within normal limits. [facility]-[id number] Performing Organization Address [facility] Phone Number [facility] [address] [place] [address] Obtain medical records (03/25/2017) Narrative Performed At POC urinalysis dipstick (01/18/2017 12:22 PM) Color urine, POC Yellow Clarity urine, POC Clear Glucose urine, POC Negative Negative Bilirubin urine, POC Negative Negative Ketones urine, POC Negative Negative Specific gravity urine, POC 1.025 1.005 - 1.030 Blood urine, POC Negative Negative pH urine, POC 7.0 5.0, 5.5, 6.0, 6.5, 7.0, 7.5, 8.0, 8.5 Protein urine, POC Negative Negative Urobilinogen urine, POC <2.0 <2.0 Nitrite urine, POC Negative Negative Leukocyte esterase urine, POC Negative Negative Specimen Urine PSA, ultrasensitive (01/11/2017 10:42 AM) PSA, ultrasensitive <0.006 0.000 - 4.000 ng/mL [facility] Comment: [place] ECLIA methodology. According to the [employer], Serum PSA should decrease and remain at undetectable levels after radical prostatectomy. The AUA defines biochemical recurrence as an initial PSA value 0.200 ng/mL or greater followed by a subsequent confirmatory PSA value 0.200 ng/mL or greater. Values obtained with different assay methods or kits cannot be used interchangeably. Results cannot be interpreted as absolute evidence of the presence or absence of malignant disease. Specimen Blood Narrative Performed At Performed at: [facility] [address] [place], [id number] [employer] Member: Eduardo Singh MD, Phone:[phone] Performing Organization Address City/State/Zipcode Phone Number [facility] Large Joint Arthrocentesis (01/10/2017 6:28 PM) Narrative Performed At Jaci Ravi MD 01/10/20176:28 PM Large Joint Arthrocentesis Supporting Documentation Indications: pain Procedure Details Location: knee - R knee Right side: Approach: anteromedial Right knee medications administered: 6 mg betamethasone acet,sod phos 6 mg/mL; 2 mL lidocaine 10 mg/mL (1 %) (The patient will apply ice to the injected area today and use OTC meds as needed for injection pain. We discussed potential risks to include infection, pain, ineffectuality, fat atrophy, skin pigmentation loss, and need for more treatment.) after 12/31/2016 Insurance Payer Benefit Plan / Group Subscriber ID Type Phone Address BCBS BCBS CHOICE PPO/F[employer]ERAL EMPL PPO xxxxxxxxxxxxxxx PPO Work: [address] [place], [place] [phone] [place] [address] Home: [phone] [facility]
[2018-01-01] MEDS ORDERED: MORPHINE 4 MG/ML SYR ONE (12:22)
[2018-01-01] MEDS ORDERED: ONDANSETRON 4 MG/2 ML VIAL ONE (12:22)
[2018-01-01] MEDS ORDERED: NA CHLORIDE 0.9% 1,000 ML ONE (12:22)
[2018-01-01 12:51] LABS: Absolute Lymphocytes (CBC) 2.1 K/uL (0.7-4.9); Absolute Monocytes 0.6 K/uL (0.1-1.3); Absolute Neutrophil 1.9 K/uL (1.8-8.0); Basophils % 1.1 % (0-1.3); Eosinophils % 2.1 % (0-4.4); Hematocrit 40.2 % (39.6-49.0); Lymphocytes % 44.4 % (15.3-44.8); MCV 94.7 fL (80-100); MPV 8.9 fL (7.6-11.3); Monocytes % 11.9 % (3.3-12.3); RBC Red Blood Cell Count 4.24 M/uL (4.33-5.43)
[2018-01-01 12:52] LABS: Protime INR 1.29
--- NOTE | 2018-01-01 13:05 | RAD REPORT ---
EXAM DESCRIPTION: RAD - Chest Single View - 01/01/2018 12:41 pm CLINICAL HISTORY: CHEST PAIN Fall, trauma COMPARISON: Chest Single View dated 07/09/2017; CHEST SINGLE VIEW dated 06/12/2011; ABDOMEN ACUTE SERI ES dated 11/09/2007 FINDINGS: Portable technique limits examination quality. The lungs are grossly clear. The heart is upper limit of normal in size. No displaced fractures. IMPRESSION: No acute intrathoracic process suspected.
--- NOTE | 2018-01-01 13:05 | RAD REPORT ---
EXAM DESCRIPTION: RAD - Shoulder Left 2 View - 01/01/2018 12:41 pm CLINICAL HISTORY: fall from deck;Pain Fall, left shoulder pain COMPARISON: No comparisons FINDINGS: AC joint and glenohumeral joint arthritic changes are present. No acute fracture or disloc ation is seen.
[2018-01-01 13:06] LABS: Potassium 2.9 mmol/L (3.5-5.1)
--- NOTE | 2018-01-01 13:36 | RAD REPORT ---
EXAM DESCRIPTION: CT - CTHCSPWOC - 01/01/2018 1:21 pm CLINICAL HISTORY: Trauma, head and neck injury. fall from deck COMPARISON: No comparisons TECHNIQUE: Axial 5 mm thick images of the head were obtained. Axial 2 mm thick images of the cervical spine were obtained with sagittal and coronal reconstruction images generated and reviewed. All CT scans are performed using dose optimization technique as appropriate and may include automated exposure control or mA/KV adjustment according to patient size. FINDINGS: CT HEAD WITHOUT CONTRAST: No acute hemorrhage, hydrocephalus or extra-axial collection is identified.No areas of brain edema or midline shift. The paranasal sinuses and mastoids are clear.The calvarium is intact. CT CERVICAL SPINE WITHOUT CONTRAST: No fracture or subluxation.Minimal lower cervical degenerative changes.No prevertebral soft tissues s welling is identified. IMPRESSION: No acute intracranial or cervical spine findings.
--- NOTE | 2018-01-01 13:39 | RAD REPORT ---
EXAM DESCRIPTION: CT - Thorax Wo Con CLINICAL HISTORY: Chest pain fall from deck COMPARISON: Shoulder Left 2 View dated 01/01/2018 FINDINGS: The lungs are clear. No pleural thickening or pleural effusion. No pneumothorax. No axillary, mediastinal or hilar adenopathy. No concerning bony finding. A few cysts are noted in the liver. All CT scans are performed using dose optimization technique as appropriate and may include automated exposure control or mA/KV adjustment according to patient size. IMPRESSION: No acute intrathoracic abnormality seen.
[2018-01-01] MEDS ORDERED: POTASSIUM 25 MEQ EFFERV TAB ONE (14:06)
[2018-01-01] MEDS ORDERED: KCL 20 MEQ/100 mL IVPB 20 MEQ/100 ML BAG IV ONE (14:07)
--- NOTE | 2018-01-01 16:17 | ER ---
Nurse's Notes [facility] Name: Aiden Morgan Age: 62 yrs Sex: Male : 1955 Arrival Date: 01/01/2018 Time: 12:07 Bed 8 Private MD: out of town, doctor Diagnosis: Pain in left shoulder-from Fall;Other chest pain-from Fall;Hypokalemia Presentation: 01/01 12:12 Presenting complaint: Patient states: "I fell about 45inches off a deck onto my left em shoulder. I am taking Eliquis.". Care prior to arrival: None. Mechanism of Injury: Fall approximately 4 feet. Trauma event details: Injury occurred in the [facility], Injury occurred: at home. Injury occurred: January 01, 2018. 12:12 Acuity: NGA 3 em 12:12 Method Of Arrival: Ambulatory em 12:40 Transition of care: patient was not received from another setting of care. Onset of sg symptoms was January 01, 2018. Risk Assessment: Do you want to hurt yourself or someone else? Patient reports no desire to harm self or others. Initial Sepsis Screen: Does the patient meet any 2 criteria? No. Patient's initial sepsis screen is negative. Does the patient have a suspected source of infection? No. Patient's initial sepsis screen is negative. Trauma Activation: Stat Physician: ED Physician; Name: ; Notified At: 12:20; Arrived At: 12:20 Physician: General Surgeon; Name: n/a; Notified At: 12:20; Arrived At: Specialty not needed Physician: Radiology; Name: navi; Notified At: 12:20; Arrived At: 12:35 Physician: Respiratory; Name: n/a; Notified At: 12:20; Arrived At: Specialty not needed Physician: Lab; Name: n/a; Notified At: 12:20; Arrived At: Specialty not needed Historical: - Allergies: 12:16 No Known Allergies; em - PMHx: 12:16 Atrial Fib; Hypertension; Prostate Cancer; TIA; em - PSHx: 12:16 prostate removal; em - Immunization history:: Adult Immunizations up to date. - Social history:: Smoking status: Patient/guardian denies using tobacco. - Immunization history: Last tetanus immunization: < 10 years ago. - Ebola Screening: : No symptoms or risks identified at this time. Screenin:10 Abuse screen: Denies threats or abuse. Denies injuries from another. Tuberculosis sg screening: No symptoms or risk factors identified. Never had TB. 12:35 Nutritional screening: No deficits noted. Fall Risk Fall in past 12 months (25 points). sg Ambulatory Aid- None/Bed Rest/Nurse Assist (0 pts). Gait- Normal/Bed Rest/Wheelchair (0 pts) Mental Status- Oriented to own ability (0 pts). Total Wen Fall Scale indicates Low Risk Score (25-44 pts). Fall prevention measures have been instituted. Side Rails Up X 2 Frequent Obs/Assesments occuring As available Patient and Family Educated on Fall Prevention Program and strategies. Primary Survey: 12:13 A: Airway: patent. Breathing/Chest: Respiratory pattern: regular, Respiratory effort: em spontaneous, unlabored. Circulation: Heart tones present. Pulses: palpable right radial artery, right brachial artery, left radial artery and left brachial artery. Skin color: pink, Skin temperature: warm, dry. Disability Alert. 12:40 Reassessment Airway Airway Patent Oxygen No O2 Oral cavity Clear Breathing/Chest sg Respiratory pattern Regular Respiratory effort Spontaneous Unlabored Breath sounds Clear Chest inspection Symmetrical Circulation Heart tones Present Pulses Palpable Color Keddie Temperature Warm Disability Alert. Assessment: 12:30 General: Appears in no apparent distress. Behavior is calm, cooperative, appropriate sg for age. Pain: Complains of pain in anterior aspect of left shoulder and left clavicle, left arm Quality of pain is described as "sore". Neuro: Level of Consciousness is awake, alert, obeys commands, Oriented to person, place, time, situation, Pump Oiler are equal bilaterally Moves all extremities. Full function Gait is steady, Speech is normal, Facial symmetry appears normal. EENT: Oral mucosa is moist. Cardiovascular: Heart tones S1 S2 present Capillary refill is brisk in bilateral fingers Patient's skin is warm and dry. Chest pain is denied. Respiratory: Airway is patent Respiratory effort is even, unlabored, Respiratory pattern is regular, symmetrical, Breath sounds are clear. GI: No signs and/or symptoms were reported involving the gastrointestinal system. : No signs and/or symptoms were reported regarding the genitourinary system. Derm: Skin is pink, warm \\T\\ dry. Musculoskeletal: Circulation, motion, and sensation intact. Range of motion: intact in all extremities, Swelling absent Reports pain in anterior aspect of left shoulder and left clavicle. 12:32 Reassessment: Patient appears in no apparent distress at this time. xray at bedside. sg 13:07 Reassessment: Dr. Nickerson and SANTOS Alcantar notified of critical lab value, potassium ss 2.9. 13:53 Reassessment: Patient appears in no apparent distress at this time. Patient is alert, sg oriented x 3, equal unlabored respirations, skin warm/dry/pink. S.Amanda DRIVER UTILITY WORKER at bedside to evaluate pt, C-Collar removed by S.Amanda DRIVER UTILITY WORKER notified, pt reports feeling better Patient states feeling better. 14:30 Reassessment: Patient appears in no apparent distress at this time. Patient and/or sg family updated on plan of care and expected duration. Pain level reassessed. Patient is alert, oriented x 3, equal unlabored respirations, skin warm/dry/pink. awaiting new orders at this time, will continue to monitor Patient states feeling better. 15:30 Reassessment: Patient appears in no apparent distress at this time. Patient and/or sg family updated on plan of care and expected duration. Pain level reassessed. Patient is alert, oriented x 3, equal unlabored respirations, skin warm/dry/pink. IV potassium continues to infuse at ordered rate, pt tolerating well, pt updated on POC and the approx time until dispo, pt state understanding, no new orders received at this time Patient states feeling better. Vital Signs: 12:14 BP 130 / 81; Pulse 63; Resp 16; Temp 98.4(TE); Pulse Ox 98% on R/A; Weight 140.61 kg em (R); Height 6 ft. 0 in. (182.88 cm) (R); Pain 3/10; 12:59 BP 132 / 83; Pulse 57; Resp 17; Pulse Ox 98% on R/A; dh3 14:37 BP 135 / 75; Pulse 61; Resp 17 S; Pulse Ox 100% on R/A; Pain 0/10; sg 15:16 BP 146 / 88; Pulse 55; Resp 18; Pulse Ox 100% on R/A; dh3 16:10 BP 132 / 72; Pulse 62; Resp 17; Pulse Ox 99% on R/A; Pain 0/10; sg 12:14 Body Mass Index 42.04 (140.61 kg, 182.88 cm) em Isai Coma Score: 12:14 Eye Response: spontaneous(4). Verbal Response: oriented(5). Motor Response: obeys em commands(6). Total: 15. 14:37 Eye Response: spontaneous(4). Verbal Response: oriented(5). Motor Response: obeys sg commands(6). Total: 15. 16:10 Eye Response: spontaneous(4). Verbal Response: oriented(5). Motor Response: obeys sg commands(6). Total: 15. Trauma Score (Adult): 12:14 Eye Response: spontaneous(1); Verbal Response: oriented(1); Motor Response: obeys em commands(2); Systolic BP: > 89 mm Hg(4); Respiratory Rate: 10 to 29 per min(4); Isai Score: 15; Trauma Score: 12 14:37 Eye Response: spontaneous(1); Verbal Response: oriented(1); Motor Response: obeys sg commands(2); Systolic BP: > 89 mm Hg(4); Respiratory Rate: 10 to 29 per min(4); Isai Score: 15; Trauma Score: 12 16:10 Eye Response: spontaneous(1); Verbal Response: oriented(1); Motor Response: obeys sg commands(2); Systolic BP: > 89 mm Hg(4); Respiratory Rate: 10 to 29 per min(4); Isai Score: 15; Trauma Score: 12 ED Course: 12:07 Patient arrived in ED. sb2 12:07 out of town, doctor is Private Physician. sb2 12:13 Triage completed. em 12:13 Benjy Ron PA is PHCP. cp 12:13 Keenan Nickerson MD is Attending Physician. cp 12:16 Arm band placed on right wrist. em 12:18 Wei Dunlap, RN is Primary Nurse. sg 12:22 Radiology exam delayed due to lab results not completed at this time. (BUN/Creatinine). sj 12:32 No provider procedures requiring assistance completed. Initial lab(s) drawn, by me, sg sent to lab. Inserted saline lock: 20 gauge in right antecubital area, using aseptic technique. Blood collected. 12:40 X-ray completed. Portable x-ray completed in exam room. Patient tolerated procedure la2 well. 12:41 XRAY Shoulder LEFT 2 view In Process Unspecified. EDMS 12:41 XRAY Chest (1 view) In Process Unspecified. EDMS 12:45 Patient has correct armband on for positive identification. Bed in low position. Call sg light in reach. Side rails up X2. Pulse ox on. NIBP on. Warm blanket given. Head of bed elevated. 12:45 EKG done, by ED staff, reviewed by Benjy GRAHAM. dh3 12:50 Patient maintains SpO2 saturation greater than 95% on room air. Thermoregulation: warm sg blanket given to patient. 13:[address] via stretcher. bq 13:20 CT completed. Patient moved back from CT. bq 13:21 CT Head C Spine In Process Unspecified. EDMS 13:26 Thorax Wo Con In Process Unspecified. EDMS 16:20 IV discontinued, intact, bleeding controlled, No redness/swelling at site. Pressure sg dressing applied. Administered Medications: 12:31 Drug: Zofran 4 mg Route: IVP; Site: right antecubital; sg 12:56 Follow up: Response: No adverse reaction; Nausea is decreased ss 12:31 Drug: morphine 4 mg Route: IVP; Site: right antecubital; sg 12:56 Follow up: Response: No adverse reaction; Pain is decreased ss 12:31 Drug: NS 0.9% 500 ml Route: IV; Rate: bolus; Site: right antecubital; sg 12:56 Drug: NS 0.9% 1000 ml Route: IV; Rate: 100 ml/hr; Site: right antecubital; ss 14:15 Drug: Potassium Chloride 20 mEq Route: IV; Rate: calculated rate; Site: right sg antecubital; 14:35 Drug: Potassium Effervescent Tablet 50 mEq Route: PO; sg Intake: 12:14 PO: 0ml; Total: 0ml. em Output: 12:14 Urine: 0ml; Total: 0ml. em Outcome: 16:15 Discharged to home ambulatory. sg 16:15 Condition: good 16:15 Discharge instructions given to patient, Instructed on discharge instructions, follow up and referral plans. no drinking with medication, no driving heavy equipment, medication usage, safety practices, Demonstrated understanding of instructions, follow-up care, medications, Prescriptions given X 3. 16:16 Discharge ordered by . liliane 16:18 Patient left the ED. zach 16:30 Patient's length of stay in the Emergency Department was greater than 2 hours. sg Patient's length of stay was extended due to staffing issues within the emergency department. radiology report delayPatient's length of stay extended due to Signatures: Dispatcher [employer] EDWei Geller, RN RN Marianna Contreras Betty bq Munoz, Edgar, SOFTWARE ENGINEERING SPECIALIST SOFTWARE ENGINEERING SPECIALIST Renita Ruelas RN RN ss Benjy Ron PA PA cp Herrera, Deanna dh3 Carito Mabry Sheri sb2
--- NOTE | 2018-01-01 16:17 | EDPHYS ---
Physician Documentation [facility] Name: Aiden Morgan Age: 62 yrs Sex: Male : 1955 Arrival Date: 01/01/2018 Time: 12:07 Bed 8 Private MD: out of town, doctor ED Physician Keenan Nickerson HPI: 01/01 12:28 This 62 yrs old Male presents to ER via Ambulatory with complaints of Fall cp Injury. 12:28 Details of fall: The patient fell from a height, deck approximately 4 feet from ground, cp from an upright position. Onset: The symptoms/episode began/occurred just prior to arrival. Associated injuries: The patient sustained left shoulder, painful injury. Historical: - Allergies: 12:16 No Known Allergies; em - PMHx: 12:16 Atrial Fib; Hypertension; Prostate Cancer; TIA; em - PSHx: 12:16 prostate removal; em - Immunization history:: Adult Immunizations up to date. - Social history:: Smoking status: Patient/guardian denies using tobacco. - Immunization history: Last tetanus immunization: < 10 years ago. - Ebola Screening: : No symptoms or risks identified at this time. ROS: 12:35 Constitutional: Negative for body aches, chills, fever, poor PO intake. cp 12:35 Eyes: Negative for injury, pain, redness, and discharge. cp 12:35 ENT: Negative for drainage from ear(s), ear pain, sore throat, difficulty swallowing, difficulty handling secretions. 12:35 Neck: Positive for tenderness, Negative for stiffness. 12:35 Cardiovascular: Positive for chest pain, of the left upper, Negative for edema, palpitations. 12:35 Respiratory: Negative for cough, shortness of breath, wheezing. 12:35 Abdomen/GI: Negative for abdominal pain, nausea, vomiting, and diarrhea, diarrhea, constipation, black/tarry stool, rectal bleeding. 12:35 Back: Negative for decreased range of motion. 12:35 MS/extremity: Positive for pain, tenderness, of the left shoulder, Negative for deformity, paresthesias. 12:35 Skin: Negative for cellulitis, laceration(s), rash. 12:35 Neuro: Negative for altered mental status, loss of consciousness, seizure activity, syncope, near syncope, weakness. 12:35 All other systems are negative. Exam: 12:45 ECG was reviewed by the Attending Physician. cp 12:45 Constitutional: The patient appears in no acute distress, alert, awake, cp non-diaphoretic, non-toxic, well developed, well nourished. 12:45 Head/Face: Normocephalic, atraumatic. cp 12:45 Eyes: Periorbital structures: appear normal, Pupils: equal, round, and reactive to light and accomodation, Extraocular movements: intact throughout, Conjunctiva: Sclera: no appreciated abnormality, Lids and lashes: 12:45 ENT: External ear(s): are unremarkable, Ear canal(s): are normal, clear, TM's: bulging, is not appreciated, bilaterally, dullness, bilaterally, erythema, is not appreciated, bilaterally, Nose: is normal, Mouth: Lips: moist, Oral mucosa: pink and intact, moist, Posterior pharynx: is normal, airway is patent, no erythema, no exudate. 12:45 Neck: C-spine: C-collar placed in ED, vertebral tenderness, is not appreciated, crepitus, is not appreciated, Trachea: is midline with no obvious abnormalities, ROM/movement: pain, that is mild. 12:45 Chest/axilla: Inspection: normal, Palpation: crepitus, is not appreciated, tenderness, that is mild, of the left supraclavicular area, left clavicle and anterior aspect of left upper chest, that partially reproduces the patient's complaints. 12:45 Cardiovascular: Rate: normal, Rhythm: regular, Pulses: Pulses are 2+ in right radial artery and left radial artery. Edema: is not appreciated, JVD: is not appreciated. 12:45 Respiratory: the patient does not display signs of respiratory distress, Respirations: normal, no use of accessory muscles, no retractions, no splinting, no tachypnea, labored breathing, is not present, Breath sounds: are clear throughout, no decreased breath sounds, no stridor, no wheezing. 12:45 Abdomen/GI: Inspection: obese Bowel sounds: active, all quadrants, Palpation: abdomen is soft and non-tender, in all quadrants, rebound tenderness, is not appreciated, voluntary guarding, is not appreciated, involuntary guarding, is not appreciated. 12:45 Back: pain, is absent, ROM is normal, vertebral tenderness, is not appreciated. 12:45 Musculoskeletal/extremity: Extremities: grossly normal except: noted in the lateral left shoulder: tenderness, There is no evidence of decreased ROM, deformity, ROM: limited passive range of motion due to pain, in the left shoulder, Sensation intact. 12:45 Skin: cellulitis, is not appreciated, no rash present. 12:45 Neuro: Orientation: to person, place \T\ time. Mentation: lucid, able to follow commands, Cerebellar function: is grossly normal, Motor: moves all fours, strength is normal. Vital Signs: 12:14 BP 130 / 81; Pulse 63; Resp 16; Temp 98.4(TE); Pulse Ox 98% on R/A; Weight 140.61 kg em (R); Height 6 ft. 0 in. (182.88 cm) (R); Pain 3/10; 12:59 BP 132 / 83; Pulse 57; Resp 17; Pulse Ox 98% on R/A; dh3 14:37 BP 135 / 75; Pulse 61; Resp 17 S; Pulse Ox 100% on R/A; Pain 0/10; sg 15:16 BP 146 / 88; Pulse 55; Resp 18; Pulse Ox 100% on R/A; dh3 16:10 BP 132 / 72; Pulse 62; Resp 17; Pulse Ox 99% on R/A; Pain 0/10; sg 12:14 Body Mass Index 42.04 (140.61 kg, 182.88 cm) em Orland Coma Score: 12:14 Eye Response: spontaneous(4). Verbal Response: oriented(5). Motor Response: obeys em commands(6). Total: 15. 14:37 Eye Response: spontaneous(4). Verbal Response: oriented(5). Motor Response: obeys sg commands(6). Total: 15. 16:10 Eye Response: spontaneous(4). Verbal Response: oriented(5). Motor Response: obeys sg commands(6). Total: 15. Trauma Score (Adult): 12:14 Eye Response: spontaneous(1); Verbal Response: oriented(1); Motor Response: obeys em commands(2); Systolic BP: > 89 mm Hg(4); Respiratory Rate: 10 to 29 per min(4); Isai Score: 15; Trauma Score: 12 14:37 Eye Response: spontaneous(1); Verbal Response: oriented(1); Motor Response: obeys sg commands(2); Systolic BP: > 89 mm Hg(4); Respiratory Rate: 10 to 29 per min(4); Orland Score: 15; Trauma Score: 12 16:10 Eye Response: spontaneous(1); Verbal Response: oriented(1); Motor Response: obeys sg commands(2); Systolic BP: > 89 mm Hg(4); Respiratory Rate: 10 to 29 per min(4); Isai Score: 15; Trauma Score: 12 MDM: 12:13 Patient medically screened. cp 13:00 Differential diagnosis: closed head injury, contusion, fracture, multiple trauma. cp 13:47 Data reviewed: vital signs, nurses notes, lab test result(s), EKG, radiologic studies, cp CT scan, plain films. 13:47 Test interpretation: by ED physician or midlevel provider: ECG. cp 16:15 Counseling: I had a detailed discussion with the patient and/or guardian regarding: the cp historical points, exam findings, and any diagnostic results supporting the discharge/admit diagnosis, lab results, radiology results, the need for outpatient follow up, a family practitioner, to return to the emergency department if symptoms worsen or persist or if there are any questions or concerns that arise at home. 16:15 Response to treatment: the patient's symptoms have markedly improved after treatment, cp and as a result, I will discharge patient. 01/01 12:17 Order name: Basic Metabolic Panel; Complete Time: 13:07 01/01 14:02 Interpretation: Normal except: K 2.9; CL 108; GLUC 108; BUN 22; CRE 1.70; GFR 41. 01/01 12:17 Order name: CBC with Diff; Complete Time: 12:59 01/01 12:59 Interpretation: Normal except: RBC 4.24; MCV 94.7; YIN% 40.5. cp 01/01 12:17 Order name: Creatinine for Radiology; Complete Time: 13:07 01/01 12:17 Order name: Type And Screen; Complete Time: 13:43 01/01 12:17 Order name: Ptt, Activated; Complete Time: 12:59 01/01 12:17 Order name: CT Head C Spine; Complete Time: 13:43 01/01 12:17 Order name: XRAY Shoulder LEFT 2 view; Complete Time: 13:07 cp 01/01 12:17 Order name: XRAY Chest (1 view); Complete Time: 13:07 cp 01/01 12:18 Order name: Troponin I; Complete Time: 13:07 cp 01/01 12:45 Order name: Protime (+INR); Complete Time: 12:59 EDMS 01/01 13:00 Interpretation: Abnormal: PT 15.3. cp 01/01 13:01 Order name: ABO/RH no charge; Complete Time: 13:07 EDMS 01/01 13:10 Order name: Thorax Wo Con; Complete Time: 13:43 EDMS 01/01 12:17 Order name: Labs collected and sent; Complete Time: 12:32 cp 01/01 12:17 Order name: EKG; Complete Time: 12:19 cp 01/01 12:17 Order name: EKG - Nurse/Tech; Complete Time: 13:14 cp EC:45 Rate is 60 beats/min. Rhythm is regular. [place] interval is prolonged at 212 msec. QRS cp interval is prolonged at 114 msec. QT interval is normal. No ST changes noted. Interpreted by me. Reviewed by me. Administered Medications: 12:31 Drug: Zofran 4 mg Route: IVP; Site: right antecubital; sg 12:56 Follow up: Response: No adverse reaction; Nausea is decreased ss 12:31 Drug: morphine 4 mg Route: IVP; Site: right antecubital; sg 12:56 Follow up: Response: No adverse reaction; Pain is decreased ss 12:31 Drug: NS 0.9% 500 ml Route: IV; Rate: bolus; Site: right antecubital; sg 12:56 Drug: NS 0.9% 1000 ml Route: IV; Rate: 100 ml/hr; Site: right antecubital; ss 14:15 Drug: Potassium Chloride 20 mEq Route: IV; Rate: calculated rate; Site: right sg antecubital; 14:35 Drug: Potassium Effervescent Tablet 50 mEq Route: PO; sg Disposition: 18:35 Co-signature as Attending Physician, Keenan Nickerson MD. Disposition: 01/01/18 16:16 Discharged to Home. Impression: Pain in left shoulder - from Fall, Other chest pain - from Fall, Hypokalemia. - Condition is Stable. - Discharge Instructions: Nonspecific Chest Pain, Potassium Content of Foods, Musculoskeletal Pain, Shoulder Pain. - Prescriptions for Potassium Chloride 10 mEq Oral Capsule, Sustained Release - take 1 tablet by ORAL route every 12 hours for 3 days; 6 tablet. Cyclobenzaprine 10 mg Oral Tablet - take 1 tablet by ORAL route every 8 hours As needed no driving while taking medication; 20 tablet. Tramadol 50 mg Oral Tablet - take 1 tablet by ORAL route every 8 hours as needed. no driving while taking medication; 12 tablet. - Medication Reconciliation Form, Thank You Letter, Antibiotic Education, Prescription Opioid Use form. - Follow up: Private Physician; When: 1 - 2 days; Reason: Recheck today's complaints. - Problem is new. - Symptoms have improved. Signatures: Dispatcher [employer] EDMS Wei Dunlap, RN RN sg Leonor Patel, ELDON-C REGION MANAGER-Fuadw Larry Orozco, ELECTROPLATING WORKER ELECTROPLATING WORKER Renita Ruelas RN RN ss Benjy Ron, PA PA Keenan Mcgill MD MD gs Corrections: (The following items were deleted from the chart) 12:45 12:18 PROTIME (+INR)+COAG.LAB.BRZ ordered. EDMS EDMS 13:10 12:18 Thorax W/ Con+CT.RAD.BRZ ordered. EDMS EDMS 16:18 16:16 01/01/2018 16:16 Discharged to Home. Impression: Pain in left shoulder - from ss Fall; Other chest pain - from Fall; Hypokalemia. Condition is Stable. Forms are Medication Reconciliation Form, Thank You Letter, Antibiotic Education, Prescription Opioid Use. Follow up: Private Physician; When: 1 - 2 days; Reason: Recheck today's complaints. Problem is new. Symptoms have improved. cp
--- NOTE | 2018-01-02 06:38 | EKG ---
Test Date: 2018-01-01 Test Time: 12:37:47 Toy Assembly Supervisor: SHILO MEASUREMENT RESULTS: Intervals: Rate: 60 [place]: 212 QRSD: 114 QT: 468 QTc: 468 [place]: P: 37 OH: 212 QRS: -35 T: -7 INTERPRETIVE STATEMENTS: Sinus rhythm with 1st degree AV block Left axis deviation Intraventricular conduction delay Abnormal ECG Compared to ECG 07/09/2017 12:27:07 First degree AV block now present Left-axis deviation now present Atrial fibrillation no longer present Ventricular premature complex(es) no longer present Myocardial infarct finding no longer present Electronically Signed On 01-02-18 06:37:48 CDT by Emil Kilpatrick
== END 2018-01-01 16:18 | disposition home or self-care (01) ==
LOC: ER 12:05
DX: R07.89 Other chest pain (principal); E87.6 Hypokalemia; W17.89XA Other fall from one level to another, initial encounter; Y93.9 Activity, unspecified; Y92.9 Unspecified place or not applicable; Z85.46 Personal history of malignant neoplasm of prostate; I10 Essential (primary) hypertension
CPT/HCPCS: 36415; 70450; 71045; 71250; 72125; 80048; 84484; 85025; 85610; 85730; 86850; 86900; 86901; 93005; 96374; 96375; 99285; J2405; J7030

== ENCOUNTER 2024-09-07 23:52 | Emergency (ER) | payer BC, OTHER ==
--- OUTSIDE RECORDS SUMMARY | 2024-09-07 23:55 | XMS REPORT | Clinical Summary ---
Author Name Unknown Organization [facility] Address [address] [place] [address] Care Team Providers Care Aeronautical Inspector Name Role Phone Marco Antonio Hernandez MD Unavailable Unavailab Marco Antonio Herrera MD Unavailable Unavailab Nevin Rob APRN Unavailable [phone] Freida Ashley MD Unavailable Daniel Resendiz APRN Unavailable [phone] Allergies No known active allergies Medications amLODIPine (NORVASC) 5 mg tablet Take 5 mg by mouth at bedtime. Active UNABLE TO FINDIndications:Zyf lamend Take 2 capsules by mouth twice daily. Med: Zyflamend Active multivitamin with minerals tablet Take 1 tablet by mouth daily. Active melatonin 5 mg tab tablet Take 10 mg by mouth at bedtime. Active enalapril-hydrochlo rothiazide (VASERETIC) 10 mg-25 mg per tablet Take 1 tablet by mouth daily. 6 Active cyanocobalamin (VITAMIN B-12) 100 mcg tablet Take 100 mcg by mouth twice daily. Active labetalol (TRANDATE) 300 mg tabletIndications:h ypertension Take 300 mg by mouth twice daily. Active apixaban (ELIQUIS) 5 mg tabletIndications:p revent thromboembolism in chronic atrial fibrillation Take 5 mg by mouth twice daily. Active pantoprazole (PROTONIX) 40 mg EC tablet Take 40 mg by mouth daily. 0 Active Active Problems Problem Noted Date Diagnosed Date Atrial fibrillation 07/21/2017 Essential (primary) hypertension 07/21/2017 Adenocarcinoma of prostate 01/30/2015 Immunizations Name Administration Dates Next Due Influenza, Unspecified 03/13/2021,2019,03/07/2019,2018,03/30/2017 Influenza, injectable, quadr ivalent, preservative free 03/05/2020,03/07/2019,03/30/2018 Influenza, split virus, triv alent, preservative 02/09/2016,04/03/2015 Pfizer SARS-CoV-2 Vaccinatio n (Purple Cap) 02/18/2021 Tdap 10/05/2018,07/04/2009 Zoster Recombinant 07/15/2020,05/09/2020 Surgical History Surgery Date Site/Laterality Comments COLONOSCOPY 07/04/2020 - 07/03/2021 [facility] Medical History Medical History Date Comments Malignant neoplasm of prostate Essential (primary) hypertension Sleep apnea Hypercholesterolemia Paroxysmal atrial fibrillation Family History Medical History Relation Name Comments Lung cancer Father Colon cancer Maternal Grandfather Heart attack Maternal Uncle Diabetes Paternal Grandmother Relation Name Status Comments Father Maternal Grandfather Maternal Uncle Paternal Grandmother Social History Tobacco Use Types Packs/Day Years Used Date Smoking Tobacco: Never Smokeless Tobacco: Never Alcohol Use Standard Drinks/Week Comments Yes 6 (1 standard drink = 0.6 oz pur e alcohol) Sex and Gender Information Value Date Recorded Sex Assigned at Not on file 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 Gender Identity Not on file Sexual Orientation Not on file Obstetrics History Plan of Treatment Health Maintenance Due Date Last Done Comments Pneumococcal Vaccine: 50+ Ye ars (1 of 1 - PCV) 2007 COVID-19 Vaccine (2023-2 5 season) 2024 02/18/2021, 10/09/2020, 09/18/2020 Influenza Vaccine (#1) 2024 , 03/05/2020, 02/27/2020, Additional history exists Insurance PPO POS PPO POS Advance Directives Documents on File Type Date Recorded Patient Fire Behavior Analyst Expl anation Advance Directives: Medical Power of Clinical Resource Coordinator 09/20/2013 Historical Advance Directives: Medical Power of Clinical Resource Coordinator 09/20/2013 Historical Care Teams Aeronautical Inspector Relationship Specialty Start Date End Date Marco Antonio Hernandez MD PCP - External Referring 09/05/13 Marco Antonio Hernandez MD PCP - External Follow Up A 09/05/13 Nevin Chicas APRN [address] [place] [address] [email or web address] Practitioner 09/10/15 Freida Ashley MD [address] [place] [address] [email or web address] Physician 09/10/15 Daniel Resendiz APRN [address] [facility] [address] [place], [place] [id number] [email or web address] Nurse Practitioner Genitourinary Oncology 03/25/22
[2024-09-08] MEDS ORDERED: ACETAMINOPHEN 325 MG TABLET ONE (00:57)
[2024-09-08 01:08] LABS: Absolute Basophils 0.1 K/uL (0-0.5); Absolute Eosinophils 0.1 K/uL (0-0.5); Absolute Lymphocytes (CBC) 1.4 K/uL (0.7-4.9); Absolute Monocytes 0.8 K/uL (0.1-1.3); Absolute Neutrophil 4.4 K/uL (1.8-8.0); Eosinophils % 1.6 % (0-4.4); Hematocrit 34.2 % (39.6-49.0); Hemoglobin 12.1 g/dL (13.6-17.9); Lymphocytes % 20.4 % (15.3-44.8); MCH 32.7 pg (27.0-35.0); MCHC 35.3 g/dL (32.0-36.0); MCV 92.5 fL (80-100); MPV 8.2 fL (7.6-11.3); Monocytes % 11.4 % (3.3-12.3); Neutrophils % 65.6 % (41.7-73.7); Nucleated Red Blood Cells % 0.1 % (0-0); Platelets 168 thou/uL (152-406); Red Cell Distribution Width 12.7 % (12.1-15.2)
[2024-09-08 01:37] LABS: Anion Gap 10.2 mEq/L (5.0-15.0); Influenza A Ag Negative; Influenza B Ag Negative; Potassium 3.2 mEq/L (3.5-5.1); SARS-CoV-2 Antigen Rapid Res Negative (Negative)
[2024-09-08 01:40] LABS: Troponin High Sensitivity 4244.3 pg/mL (<58.9)
--- NOTE | 2024-09-08 03:14 | EDPHYS ---
Physician Documentation [facility] Name: Aiden Morgan Age: 69 yrs Sex: Male : 1955 Arrival Date: 09/07/2024 Time: 23:52 Bed 18 Private MD: ED Physician Petros Weiner HPI: 09/08 00:42 This 69 yrs old Male presents to ER via Ambulatory with complaints of Fever, Chest rn Tightness. 00:42 The patient reports fever, not measured (subjective). Onset: The symptoms/episode rn began/occurred today. Modifying factors: there are no obvious modifying factors. Severity of symptoms: At their worst the symptoms were mild in the emergency department the symptoms have improved. The patient has not experienced similar symptoms in the past. The patient has been recently seen by a physician:. Patient reports had ablation past for A-fib, ablation went well and is not having any palpitations or rhythm issues. Told to watch out for fever and noticed fever at home, reports recorded 102 fever 45 minutes ago, is 99.4 here without any medications since originally taking it. Patient does report mild shortness of breath and chest heaviness. No cough. No hemoptysis. No leg pain or swelling. No abdominal pain. No vomiting. Right groin access site well-appearing and nonpainful.. Historical: - Allergies: 00:24 No Known Allergies; br2 - PMHx: 00:24 Atrial Fib; Hypertension; Prostate Cancer; TIA; Hypercholesterolemia; br2 - Immunization history:: Adult Immunizations up to date. - Infectious Disease History:: Denies. - Social history:: Smoking status: Patient denies any tobacco usage or history of. Patient/guardian denies using alcohol, street drugs. - Family history:: not pertinent. - Hospitalizations: : Patient was recently seen at. ROS: 00:42 Constitutional: Positive for fever Eyes: Negative for injury, pain, redness, and nurse rn bsn, Neck: Negative for injury, pain, and swelling, Cardiovascular: Positive for chest heaviness, negative for palpitations Respiratory: Positive for shortness of breath Abdomen/GI: Negative for abdominal pain, nausea, vomiting, diarrhea, and constipation, MS/Extremity: Negative for injury and deformity, Skin: Negative for injury, rash, and discoloration, Neuro: Negative for headache, weakness, numbness, tingling, and seizure, Exam: 00:42 Constitutional: This is a well developed, well nourished patient who is awake, alert, rn and in no acute distress. Head/Face: Normocephalic, atraumatic. ENT: Dry mucous membranes, no stridor Cardiovascular: Regular rate and rhythm. No pulse deficits. Respiratory: Speaking full sentences, unlabored. No increased work of breathing, no retractions or nasal flaring. Abdomen/GI: Soft, non-tender Skin: Warm, dry, no evidence of cellulitis MS/ Extremity: Pulses equal, no cyanosis. Neurovascular intact. Full, normal range of motion. Equal circumference. No calf tenderness or asymmetric swelling Neuro: Awake and alert, GCS 15 01:45 ECG was reviewed by the Attending Physician. rn Vital Signs: 00:15 BP 176 / 90; Pulse 77; Resp 16; Pulse Ox 96% on R/A; ay 00:21 BP 176 / 90; Pulse 75; Resp 18; Temp 99.4; Pulse Ox 95% ; Weight 142.88 kg; Height 6 br2 ft. 0 in. ; Pain 3/10; 00:30 BP 182 / 89; Pulse 77; Resp 20; Pulse Ox 95% on R/A; ay 01:00 BP 142 / 90; Pulse 73; Resp 19; Pulse Ox 94% ; ay 02:00 BP 167 / 88; Pulse 71; Resp 17; Pulse Ox 95% ; ay 03:00 BP 164 / 83; Pulse 64; Resp 14; Pulse Ox 94% ; ay 04:00 BP 158 / 83; Pulse 59; Resp 20; Pulse Ox 96% ; ay 05:00 BP 155 / 86; Pulse 60; Resp 18; Pulse Ox 95% ; ay 00:21 Body Mass Index 42.72 (142.88 kg, 182.88 cm) br2 00:21 Pain Scale: Adult br2 MDM: 00:10 Medical Screening Exam initiated rn 03:11 Differential diagnosis: viral Infection, bacterial infection, URI, pneumonia. Data rn reviewed: vital signs, nurses notes, lab test result(s), EKG, radiologic studies, plain films, and as a result, I will admit patient. Consideration of Admission/Observation Patient was admitted/placed on observation. Escalation of care including admission/observation considered. Counseling: I had a detailed discussion with the patient and/or guardian regarding the historical points, exam findings, and any diagnostic results supporting the discharge/admit diagnosis, lab results, radiology results, the need for further work-up and treatment in the hospital, the need to transfer to another facility, for higher level of care, [facility] does not immediately have the required specialist. ED course: Patient with troponin of 4000, normal chest x-ray, no ischemia on ECG. Could be elevated secondary to recent cardioversion and ablation but not sure without previous troponin. Patient opened up his MyChart and there was no troponin obtained during hospitalization. Spoke with patient and safest option is to initiate transfer to [facility] and he agrees.. 03:37 ED course: Attempted transfer to [facility] and [facility] declines due to capacity. had rn discussion with patient, patient wants to go home and call his cardiology team later today in the morning. Told him if he is planning on going home I would at least like to rule out PE and repeat troponin so that we can establish a trend. Patient agrees but states if normal he wants to go home.. 06:26 ED course: Troponin decreased down to 3000s giving us a downward trend. CT chest for PE rn negative for PE but does show small airway infection. Will discharge home with return precautions and antibiotics. 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 09/08 00:21 Order name: Basic Metabolic Panel; Complete Time: :46 rn 09/08 00:21 Order name: CBC with Diff; Complete Time: :46 rn 09/08 00:21 Order name: NT PRO-BNP; Complete Time: :46 rn 09/08 00:21 Order name: Troponin HS; Complete Time: :46 rn 09/08 00:21 Order name: COVID-19 Ag + Flu A+B Ag; Complete Time: 01:46 rn 09/08 03:37 Order name: Troponin High Sensitivity; Complete Time: 04:24 rn 09/08 00:16 Order name: XRAY Chest (1 view) rn 09/08 03:37 Order name: CT Chest For PE Angio rn 09/08 00:21 Order name: Cardiac monitoring; Complete Time: 01:00 rn 09/08 00:21 Order name: EKG - Nurse/Tech; Complete Time: 01:01 rn 09/08 00:21 Order name: IV Saline Lock; Complete Time: 01:01 rn 09/08 00:21 Order name: Labs collected and sent; Complete Time: rn 09/08 00:21 Order name: O2 Per Protocol; Complete Time: rn 09/08 00:21 Order name: O2 Sat Monitoring; Complete Time: rn EC:45 Rate is 78 beats/min. Rhythm is regular. QRS [place] is Normal. [place] interval is prolonged. rn QRS interval is normal. QT interval is normal. No Q waves. T waves are Normal. No ST changes noted. Clinical impression: 1st degree heart block. Interpreted by me. Reviewed by me. Administered Medications: 01:00 Drug: Acetaminophen PO 650 mg PO once Route: PO; ay 03:10 Follow up: Response: No adverse reaction ay 06:25 Drug: Amoxicillin-Clavulanate PO 875 mg PO once Route: PO; rg5 06:37 Follow up: Response: No adverse reaction rg5 06:25 Drug: AZITHromycin PO 500 mg PO once Route: PO; rg5 06:37 Follow up: Response: No adverse reaction rg5 Disposition Summary: 09/08/24 06:26 Discharge Ordered Notes: Location: Home rn Problem: new(09/08/24 06:26) rn Symptoms: have improved(09/08/24 06:26) rn Condition: Stable(09/08/24 06:26) rn Diagnosis - Pneumonia, unspecified organism rn Followup: rn - With: Private Physician - When: As needed - Reason: Recheck today's complaints, Re-evaluation by your physician Discharge Instructions: - Discharge Summary Sheet rn - Community-Acquired Pneumonia, Adult rn Forms: - Medication Reconciliation Form rn - Antibiotic estate planning attorney - Prescription Opioid Use rn - Patient Portal Instructions rn - Leadership Thank You Letter rn Prescriptions: - Augmentin 875-125 mg Oral Tablet - take 1 tablet ORAL route every 12 hours for 10 days; 20 tablet; Refills: 0, rn Product Selection Permitted - Zithromax Z-Isiah 250 mg Oral Tablet - take 1 tablet ORAL route as directed for 5 days Day 1 - take two (2) tablets rn one time. Day 2, 3, 4 , 5 take one (1) tablet once daily.; 6 tablet; Refills: 0, Product Selection Permitted Signatures: Dispatcher [employer] EDIN Petros Weiner MD MD rn Gallardo, Rommel, RN RN rg5 Philly Blackburn, RN RN br2 Gladys Workman, RN RN ay Corrections: (The following items were deleted from the chart) 00:21 00:21 BASIC METABOLIC PANEL+C.LAB.BRZ ordered. EDMS EDMS 00:21 00:21 CBC+H.LAB.BRZ ordered. EDMS EDMS 00:21 00:21 PROBNP+C.LAB.BRZ ordered. EDMS EDMS 00:21 00:21 Troponin High Sensitivity+C.LAB.BRZ ordered. EDMS EDMS 00:21 00:21 COVID-19 Ag + Flu A+B Ag+I.LAB.BRZ ordered. EDMS EDMS 00:25 00:24 PMHx: HYPERLIPIDEMIA (TIA); br2 br2 06:26 03:13 rn rn 06:26 03:13 [facility] rn rn 06:26 03:13 Higher level of care rn rn 06:26 03:13 Stable rn rn 06:26 03:13 new rn rn 06:26 03:13 have improved rn rn 06:26 03:13 Chest pain, unspecified rn rn 06:26 03:13 Fever, unspecified rn rn 06:26 03:13 Dyspnea, unspecified rn rn
--- NOTE | 2024-09-08 03:14 | ER ---
Nurse's Notes [facility] Name: Aiden Morgan Age: 69 yrs Sex: Male : 1955 Arrival Date: 09/07/2024 Time: 23:52 Bed 18 Private MD: Diagnosis: Pneumonia, unspecified organism Presentation: 09/08 00:21 Chief complaint: Patient states: S/P ABLASION - A-FIB ON TUESDAY AT [facility] AND br2 DISCHARGED THIS AM. PT STATES HE HAD A FEVER OF 102 AND CP (PRESSURE), SOB. Coronavirus screen: Client denies travel out of the [place] in the last 14 days. Ebola Screen: Patient denies exposure to infectious person. Initial Sepsis Screen: Does the patient meet any 2 criteria? No. Patient's initial sepsis screen is negative. Does the patient have a suspected source of infection? No. Patient's initial sepsis screen is negative. Risk Assessment: Do you want to hurt yourself or someone else? Patient reports no desire to harm self or others. Onset of symptoms was September 07, 2024 at 23:00. 00:21 Method Of Arrival: Ambulatory br2 00:21 Acuity: NGA 3 br2 Triage Assessment: 00:24 General: Appears uncomfortable, Behavior is calm, cooperative. Pain: Complains of pain br2 in anterior aspect of right upper chest, anterior aspect of left upper chest, mid-sternal area, right nipple, right breast and left breast Pain does not radiate. Pain currently is 3 out of 10 on a pain scale. Respiratory: Reports shortness of breath at rest on exertion. Historical: - Allergies: 00:24 No Known Allergies; br2 - PMHx: 00:24 Atrial Fib; Hypertension; Prostate Cancer; TIA; Hypercholesterolemia; br2 - Immunization history:: Adult Immunizations up to date. - Infectious Disease History:: Denies. - Social history:: Smoking status: Patient denies any tobacco usage or history of. Patient/guardian denies using alcohol, street drugs. - Family history:: not pertinent. - Hospitalizations: : Patient was recently seen at. Screenin:01 [facility] ED Fall Risk Assessment (Adult) History of falling in the last 3 months, ay including since admission No falls in past 3 months (0 pts) Confusion or Disorientation No (0 pts) Intoxicated or Sedated No (0 pts) Impaired Gait No (0 pts) Mobility Assist Device Used No (0 pt) Altered Elimination No (0 pt) Score/Fall Risk Level 0 - 2 = Low Risk Oriented to surroundings, Maintained a safe environment, Educated pt \T\ family on fall prevention, incl call for assistance when getting out of bed. Abuse screen: Denies threats or abuse. Nutritional screening: No deficits noted. Tuberculosis screening: No symptoms or risk factors identified. Assessment: 01:01 General: Appears in no apparent distress. uncomfortable, Behavior is calm, cooperative. ay Pain: Denies pain. Neuro: Level of Consciousness is awake, alert, obeys commands, Oriented to person, place, time, situation, Speech is normal. Cardiovascular: Reports shortness of breath, feeling clammy Denies chest pain, nausea, vomiting. Respiratory: Reports shortness of breath since about 2000 hours on 09/07/2024 Airway is patent Respiratory effort is even, unlabored, Respiratory pattern is regular, symmetrical. GI: Abdomen is obese. : No signs and/or symptoms were reported regarding the genitourinary system. EENT: No signs and/or symptoms were reported regarding the EENT system. Vital Signs: 00:15 BP 176 / 90; Pulse 77; Resp 16; Pulse Ox 96% on R/A; ay 00:21 BP 176 / 90; Pulse 75; Resp 18; Temp 99.4; Pulse Ox 95% ; Weight 142.88 kg; Height 6 br2 ft. 0 in. ; Pain 09/10; 00:30 BP 182 / 89; Pulse 77; Resp 20; Pulse Ox 95% on R/A; ay 01:00 BP 142 / 90; Pulse 73; Resp 19; Pulse Ox 94% ; ay 02:00 BP 167 / 88; Pulse 71; Resp 17; Pulse Ox 95% ; ay 03:00 BP 164 / 83; Pulse 64; Resp 14; Pulse Ox 94% ; ay 04:00 BP 158 / 83; Pulse 59; Resp 20; Pulse Ox 96% ; ay 05:00 BP 155 / 86; Pulse 60; Resp 18; Pulse Ox 95% ; ay 00:21 Body Mass Index 42.72 (142.88 kg, 182.88 cm) br2 00:21 Pain Scale: Adult br2 ED Course: 00:03 Patient arrived in ED. gm2 00:10 Petros Weiner MD is Attending Physician. rn 00:24 Triage completed. br2 00:24 Arm band placed on. br2 00:34 Gladys Workman, ANNABELLE is Primary Nurse. ay 01:00 COVID-19 Ag + Flu A+B Ag Sent. ay 01: parts cataloguer on. Pulse ox on. NIBP on. ay 01: Basic Metabolic Panel Sent. ay : CBC with Diff Sent. ay : NT PRO-BNP Sent. ay : Troponin HS Sent. ay : Inserted saline lock: 20 gauge in right antecubital area, using aseptic technique. ay 01:34 X-ray completed. Portable x-ray completed in exam room. Patient tolerated procedure mh1 well. 01:38 XRAY Chest (1 view) In Process Unspecified. EDMS 03:23 initiated transfer with [facility], spoke with Dona requested a [facility]- tele bed. 03:48 Patient declined transfer due to capacity. vk 04:16 CT Chest For PE Angio In Process Unspecified. EDMS 06:37 No provider procedures requiring assistance completed. IV discontinued, bleeding rg5 controlled, No redness/swelling at site. Pressure dressing applied. Administered Medications: 01:00 Drug: Acetaminophen PO 650 mg PO once Route: PO; ay 03:10 Follow up: Response: No adverse reaction ay 06:25 Drug: Amoxicillin-Clavulanate PO 875 mg PO once Route: PO; rg5 06:37 Follow up: Response: No adverse reaction rg5 06:25 Drug: AZITHromycin PO 500 mg PO once Route: PO; rg5 06:37 Follow up: Response: No adverse reaction rg5 Medication: 06:38 VIS not applicable for this client. rg5 Outcome: 03:13 ER care complete, transfer ordered by . rn 06:26 Discharge ordered by . rn 06:37 Discharged to home ambulatory, rg5 06:37 Condition: stable 06:37 Discharge instructions given to patient, Instructed on discharge instructions, follow up and referral plans. Demonstrated understanding of instructions, follow-up care, medications, Prescriptions given X 2, 06:38 Patient left the ED. rg5 Signatures: [facility] Petros Weiner MD MD rn Mitchell, Ginger [facility] Leilani Mancilla Rommel, RN RN rg5 Philly Blackburn, RN RN br2 Gladys Workman RN RN ay Corrections: (The following items were deleted from the chart) 00:25 00:24 PMHx: HYPERLIPIDEMIA (TIA); br2 br2
--- NOTE | 2024-09-08 03:39 | RAD REPORT ---
EXAM: XR Chest, 1 View CLINICAL HISTORY: The patient is 69 years old and is Male; COUGH TECHNIQUE: Frontal view of the chest. COMPARISON: No relevant prior studies available. FINDINGS: Lungs: Unremarkable. No consolidation. Pleural space: Unremarkable. No pneumothorax. Heart: Unremarkable. Mediastinum: Unremarkable. Normal mediastinal contour. Bones/joints: No acute findings. IMPRESSION: No acute findings in the chest. Electronically signed by: Sylvester Durán MD 09/08/2024 03:02 AM [facility] 8 Due to temporary technical issues with the PACS/[employer] reporting system, reports are being celine d by the in-house radiologist without review as a courtesy to ensure prompt reporting the interpreting radiologist is fully responsible for the content of the report. Transcribed Date/Time: 09/08/2024 3:39 AM
--- NOTE | 2024-09-08 06:17 | RAD REPORT ---
EXAM: CT Angiography Chest With Intravenous Contrast CLINICAL HISTORY: The patient is 69 years old and is Male; Chest pain, dyspnea TECHNIQUE: Axial computed tomographic angiography images of the chest with intravenous contrast. Sagittal and coronal reformatted images were created and reviewed. This CT exam was performed using one or more of the following dose reduction techniques: automated exposure control, adjustmen t of the mA and/or kV according to patient size, and/or use of iterative reconstruction technique. MIP reconstructed images were created and reviewed. COMPARISON: CT Thorax 01/01/2018.. FINDINGS: Pulmonary arteries: No PE identified. Aorta: No acute findings. No thoracic aortic aneurysm. Lungs: Bilateral lower lobe and posterior right upper lobe small clustered airspace opacities, le ft greater than right. No bronchial plugging visualized. Pleural space: No significant pleural fluid. No pneumothorax. Heart: Mild cardiomegaly. No significant pericardial fluid. Bones/joints: Midthoracic vertebral osteophytes. No acute fracture. No dislocation. Soft tissues: Unremarkable. Lymph nodes: No pathologically enlarged lymph nodes. IMPRESSION: 1. No PE identified. 2. Pulmonary findings are consistent with multilobar small airways infection. Electronically signed by: Opal Mansfield MD 09/08/2024 06:13 AM [facility] V2 Due to temporary technical issues with the PACS/[employer] reporting system, reports are being celine d by the in-house radiologist without review as a courtesy to ensure prompt reporting the interpreting radiologist is fully responsible for the content of the report. Transcribed Date/Time: 09/08/2024 6:16 AM
[2024-09-08] MEDS ORDERED: AMOX/K CLAV 875 MG TAB ONE (06:34)
[2024-09-08] MEDS ORDERED: AZITHROMYCIN 250 MG TAB ONE (06:34)
[2024-09-08 06:54] VITALS: TEMP 99.4
[2024-09-08 07:01] VITALS: BP 155/86; O2SAT 95
== END 2024-09-08 06:38 | disposition home or self-care (01) ==
LOC: ER 23:52
DX: J18.9 Pneumonia, unspecified organism (principal); Z11.52 Encounter for screening for COVID-19
CPT/HCPCS: 85025; 80048; 36415; 84484 ×2; 83880; 71275; 71045; 99285; 87428; Q9967